=== PATIENT | male | born 1990 | race Caucasian/White ===

== ENCOUNTER 2017-10-07 19:27 | Emergency (ER) | payer OTHER ==
[~2017-10-07] VITALS: Ht 185.4 cm; Wt 199.0 kg
[~2017-10-07 19:27] MED LIST: ACET325 PO; ALBU90OI6 INH; AMOCLA875 PO; AMOX1XR PO; AMOX875 PO; ARIP10 PO; ATOM10 PO; AZIT250 PO; Ativan1 MG PO; Bactrim 400-801 EACH PO; CARI350 PO; CEPH500 PO; CLON1 PO; CYCL10 PO; FLUO10 PO; FLUO20 PO; FLUT.05NI; HALO5 PO; HYDACE5 PO; HYDACE5325 PO; IBUP800 PO; INVEGA; INVEGA SUSTENNA IM; LAMO25 PO; LEVSOD50 PO; LORA2 PO; META800 PO; MIRT30ST PO; MUPI2TC TOP; NEOPOLHCSU AS; OLAN10 PO; OXYB5 PO; OXYB5ER PO; Omeprazole20 M1 PO; PALI6TA PO; PROC5 PO; Percocet 5-3251 EACH PO; QUET100 PO; QUET25 PO; RISP3 PO; RXNEOPOLHC AS; SULTRIDS PO; Zyprexa10 MG PO; [UNRECOGNIZED DRUG - OTHER] PO
[2017-11-01] MEDS ORDERED: FLUO10 PO (15:18)
[2018-05-13] MEDS ORDERED: ARIP10 PO (21:30)
[2018-05-13] MEDS ORDERED: MONDOXYNE NL100 MG PO (21:54)
== END 2017-10-07 20:57 | disposition home or self-care (01) ==
LOC: ER 19:27
DX: S63.601A Unspecified sprain of right thumb, initial encounter (principal); F32.9 Major depressive disorder, single episode, unspecified; E03.9 Hypothyroidism, unspecified; F17.200 Nicotine dependence, unspecified, uncomplicated; Z91.02 Food additives allergy status; Z88.1 Allergy status to other antibiotic agents; Z88.8 Allergy status to other drugs, medicaments and biological substances; Z79.899 Other long term (current) drug therapy; W23.0XXA Caught, crushed, jammed, or pinched between moving objects, initial encounter; Y93.72 Activity, wrestling
CPT/HCPCS: 29125; 73140; 99283

== ENCOUNTER → 2018-01-05 | Outpatient (CLI) | payer OTHER | END | disposition home or self-care (01) | LOC: LAB EV 17:08 → LAB SHORT 17:08 | DX: J32.9 Chronic sinusitis, unspecified (principal) | CPT/HCPCS: 87070 ==

== ENCOUNTER → 2018-04-13 | Outpatient (CLI) | payer OTHER ==
[2018-04-13 14:28] LABS: Free Thyroxine 0.84 ng/dL (0.70-1.60); Thyroid Stimulating Hormone 2.545 uIU/mL (0.360-4.800)
== END | disposition home or self-care (01) ==
LOC: LAB SHORT 14:00 → LAB EV 14:00
PROVIDERS: General Practice
DX: J02.9 Acute pharyngitis, unspecified (principal); E03.9 Hypothyroidism, unspecified
CPT/HCPCS: 84439; 84443; 84481; 87070

== ENCOUNTER 2019-10-01 11:12 | Day surgery (SDC) | payer OTHER ==
[~2019-10-01] VITALS: Ht 185.4 cm; Wt 85.8 kg
[~2019-10-01 11:12] MED LIST changes: +MONDOXYNE NL100 MG PO; +OMEP20ER PO
[2019-10-01] MEDS ORDERED: Prozac40 MG PO (11:43)
--- NOTE | 2019-10-01 11:59 | NUR ---
Ambulatory in Day Surgery. History, Chart, Medications and Allergies reviewed before start of procedure. Slight exp wheeze/rhonchi. Reports rib fx, so unable to take dep breath/cough. Patient confirms NPO status and agrees with scheduled surgery. Pre-Op teaching done. Pt verbalizes understanding. Patient States Post-Procedure ride home has been arranged.
--- NOTE | 2019-10-01 16:25 | NUR ---
INTO STEP VIA DARREN. PT A&OX3. PT DENIES PAIN. LEFT ARME IN SLING. LEFT SHOULDER WITH AQUACEL DRESSING THAT IS C/D/I. PT STATES THAT LEFT ARM IS "NUMB."
--- NOTE | 2019-10-01 17:01 | NUR ---
Ambulatory in Day Surgery Dressing to procedure site clean, dry, intact with no visible drainage, swelling, erythema or bruising noted. Discharge instructions reviewed with patient. Patient verbalizes understanding. Copy given to patient to take home. Discharged via wheelchair to private car for ride home.
--- NOTE | 2019-10-02 08:34 | NUR ---
10/02/19 0834 Neida Herbert VERIFICATIONS: EDIT CHART.
== END 2019-10-01 17:00 | disposition home or self-care (01) ==
LOC: ORSCMMR 11:12
PROVIDERS: Orthopaedic Surgery
PROC: 0RSK04Z Reposition Left Shoulder Joint with Internal Fixation Device, Open Approach (ICD-10-PCS; principal; 2019-10-01 12:30)
DX: S42.252A Displaced fracture of greater tuberosity of left humerus, initial encounter for closed fracture (principal); E03.9 Hypothyroidism, unspecified; F17.210 Nicotine dependence, cigarettes, uncomplicated; Z79.899 Other long term (current) drug therapy
CPT/HCPCS: 87070; 87081; C1713; C1769; J1100; J2250; J2370; J2405; J2704; J2710; J3010; J7120

== ENCOUNTER → 2019-10-18 | Outpatient (CLI) | payer OTHER ==
[~2019-10-18] MED LIST changes: +Prozac40 MG PO
== END ==
LOC: LAB SHORT 13:35 → LAB EV 13:35
DX: K12.0 Recurrent oral aphthae (principal)
CPT/HCPCS: 87070; 87075; 87205

== ENCOUNTER 2020-12-15 16:19 | Emergency (ER) | payer OTHER ==
[~2020-12-15] VITALS: Ht 182.9 cm; Wt 83.9 kg
[~2020-12-15 16:19] MED LIST changes: +Norco 5-325 Ta1 EACH PO; +Veetids 500500 MG PO
[2020-12-15 20:36] LABS: BASOPHILS ABSOLUTE AUTO 0.02 K/mm3 (0.00-0.23); BASOPHILS PERCENT AUTO 0 % (0-2); EOSINOPHILS ABSOLUTE AUTO 0.05 K/mm3 (0.00-0.68); EOSINOPHILS PERCENT AUTO 1 % (0-6); Hematocrit 40.5 % (37.0-53.0); Hemoglobin 13.7 g/dL (13.5-17.5); IMMATURE GRAN ABSOLUTE AUTO 0.04 K/mm3 (0.00-0.10); IMMATURE GRAN PERCENT AUTO 0 % (0-1); LYMPHOCYTES ABSOLUTE AUTO 0.38 K/mm3 (0.84-5.20); LYMPHOCYTES PERCENT AUTO 4 % (21-46); MONOCYTES ABSOLUTE AUTO 0.43 K/mm3 (0.16-1.47); MONOCYTES PERCENT AUTO 4 % (4-13); Mean Corpuscular HGB 31.6 pg (26.0-34.0); Mean Corpuscular HGB Conc 33.8 g/dL (31.5-36.5); Mean Corpuscular Volume 93 fL (80-100); Mean Platelet Volume 10.6 fL (9.1-12.4); NEUTROPHILS ABSOLUTE AUTO 9.74 K/mm3 (1.96-9.15); NEUTROPHILS PERCENT AUTO 91 % (41-73); Platelet Count 127 K/mm3 (150-400); RDW Coefficient Variation 13.2 % (11.7-14.2); Red Blood Cell Count 4.34 M/mm3 (4.30-5.90); White Blood Cell Count 10.66 K/mm3 (4.00-11.30)
[2020-12-15 20:39] LABS: Troponin I <0.015 ng/mL (0.000-0.040)
[2020-12-15 20:52] LABS: Alanine Aminotransfer (ALT/SGP 21 U/L (12-78); Albumin, Blood 3.5 g/dL (3.4-5.0); Albumin/Globulin Ratio 1.1 (0.8-1.8); Alk Phos 64 U/L (50-136); Anion Gap 5 mmol/L (6-16); Aspartate Aminotrans (AST/SGOT 11 U/L (12-37); Bilirubin, Total 0.1 mg/dL (0.1-1.0); Blood Urea Nitrogen 10 mg/dL (8-24); Bun/Creatinine Ratio 9.6 (12.0-20.0); CO2, Blood 27 mmol/L (21-32); Calcium, Blood 8.5 mg/dL (8.5-10.1); Chloride, Blood 101 mmol/L (98-108); Creatinine, Blood 1.04 mg/dL (0.60-1.20); Globulin, Blood 3.3 g/dL (2.2-4.0); Glomerular Filtration Rate >60 (60-); Glucose, Blood 115 mg/dL (70-99); Potassium, Blood 3.9 mmol/L (3.5-5.5); Sodium, Blood 133 mmol/L (136-145); Total Protein, Blood 6.8 g/dL (6.4-8.2)
== END 2020-12-15 22:53 | disposition home or self-care (01) ==
LOC: ER 16:19
PROVIDERS: Emergency Medicine
DX: K08.89 Other specified disorders of teeth and supporting structures (principal); R50.9 Fever, unspecified; F17.200 Nicotine dependence, unspecified, uncomplicated; Z79.899 Other long term (current) drug therapy; Z91.041 Radiographic dye allergy status; Z88.1 Allergy status to other antibiotic agents; Z88.8 Allergy status to other drugs, medicaments and biological substances
CPT/HCPCS: 36415; 71046; 80053; 84484; 85025; 93005; 93010; 96374; 99282; 99284-25; J1885

== ENCOUNTER 2020-12-19 08:32 | Inpatient (IN) | payer OTHER ==
[~2020-12-19] VITALS: Ht 188 cm; Wt 88.7 kg
[2020-12-19 09:51] LABS: BASOPHILS ABSOLUTE AUTO 0.02 K/mm3 (0.00-0.23); BASOPHILS PERCENT AUTO 0 % (0-2); EOSINOPHILS ABSOLUTE AUTO 0.09 K/mm3 (0.00-0.68); EOSINOPHILS PERCENT AUTO 1 % (0-6); Hematocrit 41.3 % (37.0-53.0); Hemoglobin 13.8 g/dL (13.5-17.5); IMMATURE GRAN ABSOLUTE AUTO 0.03 K/mm3 (0.00-0.10); IMMATURE GRAN PERCENT AUTO 0 % (0-1); LYMPHOCYTES ABSOLUTE AUTO 2.08 K/mm3 (0.84-5.20); LYMPHOCYTES PERCENT AUTO 16 % (21-46); MONOCYTES ABSOLUTE AUTO 1.53 K/mm3 (0.16-1.47); MONOCYTES PERCENT AUTO 12 % (4-13); Mean Corpuscular HGB 31.1 pg (26.0-34.0); Mean Corpuscular HGB Conc 33.4 g/dL (31.5-36.5); Mean Corpuscular Volume 93 fL (80-100); Mean Platelet Volume 10.1 fL (9.1-12.4); NEUTROPHILS ABSOLUTE AUTO 9.16 K/mm3 (1.96-9.15); NEUTROPHILS PERCENT AUTO 71 % (41-73); Platelet Count 204 K/mm3 (150-400); RDW Coefficient Variation 13.2 % (11.7-14.2); RDW Standard Deviation 45.8 fL (35.1-46.3); Red Blood Cell Count 4.44 M/mm3 (4.30-5.90); White Blood Cell Count 12.91 K/mm3 (4.00-11.30)
[2020-12-19 10:10] LABS: Alanine Aminotransfer (ALT/SGP 37 U/L (12-78); Albumin, Blood 3.6 g/dL (3.4-5.0); Albumin/Globulin Ratio 0.9 (0.8-1.8); Alk Phos 91 U/L (50-136); Anion Gap 4 mmol/L (6-16); Aspartate Aminotrans (AST/SGOT 16 U/L (12-37); Bilirubin, Total 0.3 mg/dL (0.1-1.0); Blood Urea Nitrogen 7 mg/dL (8-24); Bun/Creatinine Ratio 7.4 (12.0-20.0); CO2, Blood 30 mmol/L (21-32); Chloride, Blood 99 mmol/L (98-108); Creatinine, Blood 0.94 mg/dL (0.60-1.20); Globulin, Blood 4.1 g/dL (2.2-4.0); Glomerular Filtration Rate >60 (60-); Glucose, Blood 96 mg/dL (70-99); Potassium, Blood 4.6 mmol/L (3.5-5.5); Sodium, Blood 133 mmol/L (136-145); Total Protein, Blood 7.7 g/dL (6.4-8.2)
[2020-12-19] MEDS ORDERED: CLON.2 PO (19:31)
[2020-12-19] MEDS ORDERED: AMLO5 PO (19:31)
[2020-12-19] MEDS ORDERED: LEVSOD25 PO (19:31)
[2020-12-19] MEDS ORDERED: INVEGA SUS234 MG/1.1 IM (19:32)
[2020-12-19 20:49] LABS: U Amphetamine Screen Not Detected; U Barbituate Screen Not Detected; U Benzodiazapine Screen Not Detected; U Buprenorphine Screen Not Detected; U Cannabinoids Screen DETECTED; U Cocaine Screen Not Detected; U Methadone Screen Not Detected; U Methamphetamine Screen Not Detected; U Opiates Screen DETECTED; U Oxycodone Screen Not Detected; U Phencyclidine Screen Not Detected; U Propoxyphene Screen Not Detected
[2020-12-20 04:25] LABS: BASOPHILS ABSOLUTE AUTO 0.03 K/mm3 (0.00-0.23); BASOPHILS PERCENT AUTO 0 % (0-2); EOSINOPHILS ABSOLUTE AUTO 0.09 K/mm3 (0.00-0.68); EOSINOPHILS PERCENT AUTO 1 % (0-6); Hemoglobin 13.3 g/dL (13.5-17.5); IMMATURE GRAN ABSOLUTE AUTO 0.05 K/mm3 (0.00-0.10); IMMATURE GRAN PERCENT AUTO 0 % (0-1); LYMPHOCYTES ABSOLUTE AUTO 2.53 K/mm3 (0.84-5.20); LYMPHOCYTES PERCENT AUTO 19 % (21-46); MONOCYTES ABSOLUTE AUTO 1.95 K/mm3 (0.16-1.47); MONOCYTES PERCENT AUTO 14 % (4-13); Mean Corpuscular HGB 31.4 pg (26.0-34.0); Mean Corpuscular HGB Conc 34.1 g/dL (31.5-36.5); Mean Corpuscular Volume 92 fL (80-100); Mean Platelet Volume 9.6 fL (9.1-12.4); NEUTROPHILS ABSOLUTE AUTO 9.03 K/mm3 (1.96-9.15); NEUTROPHILS PERCENT AUTO 66 % (41-73); Platelet Count 216 K/mm3 (150-400); RDW Coefficient Variation 13.2 % (11.7-14.2); Red Blood Cell Count 4.24 M/mm3 (4.30-5.90); White Blood Cell Count 13.68 K/mm3 (4.00-11.30)
--- NOTE | 2020-12-20 04:43 | NUR ---
SHIFT SUMMARY PT HAS BEEN A/O X4, IND IN ROOM. MOTHER AT BEDSIDE OVERNIGHT TO HELP WITH PT ANXIETY. REDNESS AND SWELLING TO L JAW/FACE. PAIN MANAGED WITH 1MG IV DILAUDED ABOUT Q2HRS. PT TOLERATING PO INTAKE AND VOIDING. NO ACUTE CHANGES OVERNIGHT. PT RESTING AT THIS TIME, CALL LIGHT IN REACH.
[2020-12-20 05:04] LABS: Alanine Aminotransfer (ALT/SGP 26 U/L (12-78); Albumin/Globulin Ratio 0.8 (0.8-1.8); Alk Phos 81 U/L (50-136); Anion Gap 3 mmol/L (6-16); Aspartate Aminotrans (AST/SGOT 7 U/L (12-37); Bilirubin, Total 0.4 mg/dL (0.1-1.0); Blood Urea Nitrogen 7 mg/dL (8-24); Bun/Creatinine Ratio 7.7 (12.0-20.0); CO2, Blood 31 mmol/L (21-32); Calcium, Blood 9.1 mg/dL (8.5-10.1); Chloride, Blood 99 mmol/L (98-108); Creatinine, Blood 0.91 mg/dL (0.60-1.20); Globulin, Blood 3.8 g/dL (2.2-4.0); Glomerular Filtration Rate >60 (60-); Glucose, Blood 115 mg/dL (70-99); Sodium, Blood 133 mmol/L (136-145); Total Protein, Blood 6.8 g/dL (6.4-8.2)
[2020-12-20 11:57] LABS: Vancomycin, Trough 13.7 ug/mL (5.0-10.0)
--- NOTE | 2020-12-20 14:54 | NUR ---
AMBULATING DOWN THE MC, REPORTS PAIN IS DOWN TO 4/10 FROM 9/10 AFTER 2 NORCO GIVEN, CONT. TO MONITOR FOR ANY CHANGES.
--- NOTE | 2020-12-20 17:01 | NUR ---
PT REQUESTING MORE PAIN MEDS ABOUT 3 HOURS AFTER NORCO TAKEN, DR. WOMACK NOTIFIED, TRAMADOL ORDERED AND GIVEN TO PT, CONT. ICE PACK AND HEATING PAD OFFERED AND HAS USED BOTH ALTERNATIVELY.
--- NOTE | 2020-12-20 17:30 | NUR ---
SUMMARY CONT. TO C/O PAIN ON L JAW AREA, STATES THE SWELLING IS "THE SAME" PT STARTED ON NORCO TODAY WITH INADEQUATE PAIN RELIEF, TRAMADOL ADDED Q4HRS PRN BY DR. WOMACK, ICE PACK AND HEATING PAD APPLIED TO JAW AREA ALTERNATELY, CONT. TO HAVE DECREASED APPETITE, PT ONLY DRINKING ENSURE, STATES HIS MOM IS BRINGING HIM SOME FOOD, NO OTHER CHANGES THIS SHIFT.
--- NOTE | 2020-12-20 18:22 | NUR ---
PT C/O 05/08 PAIN, STATES THE TRAMADOL WASN'T WORKING, DR. HOWE NOTIFIED, NEW ORDER FOR DILAUDID GIVEN, NORCO CHANGED TO Q4HRS.
--- NOTE | 2020-12-21 04:14 | NUR ---
PT HAS PAINFUL FACIAL AND JAW SWELLING. HAD HEAT PLACED TO JAW BUT REMOVED. PT REFUSES COLD PACK, STS IT DOES NOT WORK. PT HAS BEEN MEDICATED FOR PAIN TWICE AND APPEARED TO SLEEP SOUNDLY AFTER BEING MEDICATED. NO SIGNIFICANT CHANGES TO PT STATUS OVERNIGHT.
[2020-12-21 04:36] LABS: BASOPHILS ABSOLUTE AUTO 0.03 K/mm3 (0.00-0.23); BASOPHILS PERCENT AUTO 0 % (0-2); EOSINOPHILS ABSOLUTE AUTO 0.19 K/mm3 (0.00-0.68); EOSINOPHILS PERCENT AUTO 2 % (0-6); Hematocrit 37.4 % (37.0-53.0); Hemoglobin 12.9 g/dL (13.5-17.5); IMMATURE GRAN ABSOLUTE AUTO 0.04 K/mm3 (0.00-0.10); IMMATURE GRAN PERCENT AUTO 0 % (0-1); LYMPHOCYTES ABSOLUTE AUTO 2.18 K/mm3 (0.84-5.20); LYMPHOCYTES PERCENT AUTO 21 % (21-46); MONOCYTES ABSOLUTE AUTO 1.05 K/mm3 (0.16-1.47); MONOCYTES PERCENT AUTO 10 % (4-13); Mean Corpuscular HGB 31.4 pg (26.0-34.0); Mean Corpuscular HGB Conc 34.5 g/dL (31.5-36.5); Mean Corpuscular Volume 91 fL (80-100); Mean Platelet Volume 9.4 fL (9.1-12.4); NEUTROPHILS ABSOLUTE AUTO 6.79 K/mm3 (1.96-9.15); NEUTROPHILS PERCENT AUTO 66 % (41-73); Platelet Count 219 K/mm3 (150-400); RDW Coefficient Variation 13.2 % (11.7-14.2); RDW Standard Deviation 45.1 fL (35.1-46.3); Red Blood Cell Count 4.11 M/mm3 (4.30-5.90); White Blood Cell Count 10.28 K/mm3 (4.00-11.30)
--- NOTE | 2020-12-21 04:52 | NUR ---
PT VSS T/O NIGHT. SWELLING TO LEFT SIDE OF FACE APPEARS TO BE IMPROVING. PT REP IT FEELS LESS SWOLLEN AND TIGHT. PT REMAINS PAINFUL BUT DOES REP PAIN "A LITTLE BETTER"; PAIN MGD W/NORCO AND IV DILAUDID. PT HAD NO C/O N/V, IS VOIDING URINE W/O DIFFICULTY. PT MORE PLEASANT AND INTERACTIVE THIS AM, IS INDEP IN ROOM, MOM IN ROOM DURING NIGHT. IV ABX CONT PER ORDERS.
[2020-12-21 04:57] LABS: Anion Gap 2 mmol/L (6-16); Blood Urea Nitrogen 8 mg/dL (8-24); Bun/Creatinine Ratio 9.9 (12.0-20.0); CO2, Blood 29 mmol/L (21-32); Calcium, Blood 8.9 mg/dL (8.5-10.1); Chloride, Blood 104 mmol/L (98-108); Creatinine, Blood 0.81 mg/dL (0.60-1.20); Glomerular Filtration Rate >60 (60-); Glucose, Blood 98 mg/dL (70-99); Potassium, Blood 4.5 mmol/L (3.5-5.5); Sodium, Blood 135 mmol/L (136-145)
--- NOTE | 2020-12-21 08:44 | NUR ---
REPORTS FEELING "BETTER" TODAY, L JAW SWELLING APPEARS IMPROVED, PT STATES IT FEELS LIKE THE SWELLING HAS GONE DOWN, REPORTS PAIN IS TOLERABLE FOR NOW.
[2020-12-21 13:00] LABS: Vancomycin, Trough 17.8 ug/mL (5.0-10.0)
[2020-12-21] MEDS ORDERED: ACET325 PO (13:01)
[2020-12-21] MEDS ORDERED: TRAM50 PO (13:01)
[2020-12-21] MEDS ORDERED: AMOCLA500 PO (13:02)
[2020-12-21] MEDS ORDERED: DOXY100 PO (13:02)
--- NOTE | 2020-12-21 14:06 | NUR ---
DC'D HOME, DC INSTRUCTIONS GIVEN TO MOM AND PT, VERBALIZED UNDERSTANDING, IV DC'D CATH INTACT, RX SENT TO [facility] PER PT REQUEST, PHARMACY CONTACTED REGARDING CHANGE IN DOXYCYCLINE RX.
== END 2020-12-21 13:39 | disposition home or self-care (01) | DRG 603 ==
LOC: ER 08:32 → MEDS 12:32 → SURS 13:37
PROVIDERS: Pharmacist; Physician Assistant; Student in an Organized Health Care Education/Training Program; ADMIT Internal Medicine
DX: L03.211 Cellulitis of face (principal); F17.210 Nicotine dependence, cigarettes, uncomplicated; F32.9 Major depressive disorder, single episode, unspecified; I10 Essential (primary) hypertension; F90.9 Attention-deficit hyperactivity disorder, unspecified type; Z98.890 Other specified postprocedural states; Z88.1 Allergy status to other antibiotic agents; Z88.8 Allergy status to other drugs, medicaments and biological substances; Z91.040 Latex allergy status; E03.9 Hypothyroidism, unspecified; F15.10 Other stimulant abuse, uncomplicated; K04.7 Periapical abscess without sinus; F43.10 Post-traumatic stress disorder, unspecified; Z79.899 Other long term (current) drug therapy
CPT/HCPCS: 36415; 70487; 80048; 80053; 80202; 83605; 83690; 84145; 85025; 85651; 86140; 87040; 96365-59; 96366; 96367; 96375-59; 96376-59; 99285-25; A9270; J0295; J1170; J1650; J2405; J3010; J3370; J7030; J7050; Q9967

== ENCOUNTER 2020-12-26 20:18 | Emergency (ER) | payer OTHER ==
[~2020-12-26] VITALS: Ht 188 cm; Wt 88.0 kg
[~2020-12-26 20:18] MED LIST changes: +AMLO5 PO; +AMOCLA500 PO; +CLON.2 PO; +DOXY100 PO; +INVEGA SUS234 MG/1.1 IM; +LEVSOD25 PO; +TRAM50 PO
[2020-12-26 20:51] LABS: BASOPHILS ABSOLUTE AUTO 0.02 K/mm3 (0.00-0.23); BASOPHILS PERCENT AUTO 0 % (0-2); EOSINOPHILS ABSOLUTE AUTO 0.12 K/mm3 (0.00-0.68); EOSINOPHILS PERCENT AUTO 1 % (0-6); Hemoglobin 13.7 g/dL (13.5-17.5); IMMATURE GRAN ABSOLUTE AUTO 0.03 K/mm3 (0.00-0.10); IMMATURE GRAN PERCENT AUTO 0 % (0-1); LYMPHOCYTES ABSOLUTE AUTO 2.88 K/mm3 (0.84-5.20); LYMPHOCYTES PERCENT AUTO 26 % (21-46); MONOCYTES ABSOLUTE AUTO 0.92 K/mm3 (0.16-1.47); MONOCYTES PERCENT AUTO 8 % (4-13); Mean Corpuscular HGB 31.4 pg (26.0-34.0); Mean Corpuscular HGB Conc 34.3 g/dL (31.5-36.5); Mean Corpuscular Volume 92 fL (80-100); Mean Platelet Volume 9.5 fL (9.1-12.4); NEUTROPHILS ABSOLUTE AUTO 7.19 K/mm3 (1.96-9.15); NEUTROPHILS PERCENT AUTO 64 % (41-73); Platelet Count 301 K/mm3 (150-400); RDW Coefficient Variation 13.1 % (11.7-14.2); RDW Standard Deviation 44.3 fL (35.1-46.3); Red Blood Cell Count 4.37 M/mm3 (4.30-5.90); White Blood Cell Count 11.16 K/mm3 (4.00-11.30)
[2020-12-26 21:09] LABS: Alanine Aminotransfer (ALT/SGP 24 U/L (12-78); Albumin, Blood 3.8 g/dL (3.4-5.0); Albumin/Globulin Ratio 0.9 (0.8-1.8); Alk Phos 80 U/L (50-136); Anion Gap 5 mmol/L (6-16); Aspartate Aminotrans (AST/SGOT 16 U/L (12-37); Bilirubin, Total 0.2 mg/dL (0.1-1.0); Blood Urea Nitrogen 8 mg/dL (8-24); Bun/Creatinine Ratio 8.7 (12.0-20.0); CO2, Blood 31 mmol/L (21-32); Calcium, Blood 9.5 mg/dL (8.5-10.1); Chloride, Blood 100 mmol/L (98-108); Creatinine, Blood 0.92 mg/dL (0.60-1.20); Globulin, Blood 4.1 g/dL (2.2-4.0); Glomerular Filtration Rate >60 (60-); Glucose, Blood 95 mg/dL (70-99); Potassium, Blood 3.9 mmol/L (3.5-5.5); Sodium, Blood 136 mmol/L (136-145); Total Protein, Blood 7.9 g/dL (6.4-8.2)
== END 2020-12-26 21:30 | disposition home or self-care (01) ==
LOC: ER 20:18
PROVIDERS: Physician Assistant
DX: L08.9 Local infection of the skin and subcutaneous tissue, unspecified (principal); Z79.899 Other long term (current) drug therapy
CPT/HCPCS: 36415; 80053; 85025; 99283

== ENCOUNTER → 2021-02-01 | Outpatient (CLI) | payer OTHER | END | disposition home or self-care (01) | LOC: LAB 15:04 → LAB SHORT 15:04 | DX: N48.22 Cellulitis of corpus cavernosum and penis (principal) | CPT/HCPCS: 87070; 87205 ==

== ENCOUNTER → 2021-07-10 | Outpatient (CLI) | payer OTHER ==
[2021-07-18 21:06] LABS: HSV-1 DNA Negative (Negative); HSV-2 DNA Negative (Negative)
== END ==
LOC: LAB 12:25 → LAB SHORT 12:25
PROVIDERS: Physician Assistant Surgical
DX: S01.501A Unspecified open wound of lip, initial encounter (principal)
CPT/HCPCS: 87529

== ENCOUNTER → 2021-08-01 | Outpatient (CLI) | payer OTHER ==
[2021-08-01 11:54] LABS: BASOPHILS ABSOLUTE AUTO 0.01 K/mm3 (0.00-0.23); BASOPHILS PERCENT AUTO 0 % (0-2); EOSINOPHILS ABSOLUTE AUTO 0.12 K/mm3 (0.00-0.68); EOSINOPHILS PERCENT AUTO 1 % (0-6); Hematocrit 41.3 % (37.0-53.0); IMMATURE GRAN ABSOLUTE AUTO 0.01 K/mm3 (0.00-0.10); IMMATURE GRAN PERCENT AUTO 0 % (0-1); LYMPHOCYTES ABSOLUTE AUTO 0.47 K/mm3 (0.84-5.20); LYMPHOCYTES PERCENT AUTO 6 % (21-46); MONOCYTES ABSOLUTE AUTO 0.79 K/mm3 (0.16-1.47); MONOCYTES PERCENT AUTO 9 % (4-13); Mean Corpuscular HGB Conc 33.9 g/dL (31.5-36.5); Mean Corpuscular Volume 94 fL (80-100); NEUTROPHILS ABSOLUTE AUTO 7.05 K/mm3 (1.96-9.15); NEUTROPHILS PERCENT AUTO 84 % (41-73); Platelet Count 212 K/mm3 (150-400); RDW Coefficient Variation 13.2 % (11.7-14.2); RDW Standard Deviation 45.8 fL (35.1-46.3); Red Blood Cell Count 4.38 M/mm3 (4.30-5.90); White Blood Cell Count 8.45 K/mm3 (4.00-11.30)
[2021-08-01 12:19] LABS: Alanine Aminotransfer (ALT/SGP 33 U/L (12-78); Albumin, Blood 4.4 g/dL (3.4-5.0); Albumin/Globulin Ratio 1.5 (0.8-1.8); Alk Phos 74 U/L (40-126); Anion Gap 9 mmol/L (6-16); Aspartate Aminotrans (AST/SGOT 24 U/L (12-37); Bilirubin, Total 0.5 mg/dL (0.1-1.0); Blood Urea Nitrogen 8 mg/dL (8-24); Bun/Creatinine Ratio 8.8 (12.0-20.0); CO2, Blood 31 mmol/L (21-32); Calcium, Blood 9.3 mg/dL (8.5-10.1); Chloride, Blood 102 mmol/L (98-108); Creatinine, Blood 0.91 mg/dL (0.60-1.20); Globulin, Blood 2.9 g/dL (2.2-4.0); Glomerular Filtration Rate >60 (60-); Glucose, Blood 82 mg/dL (70-99); Potassium, Blood 3.8 mmol/L (3.5-5.5); Sodium, Blood 142 mmol/L (136-145); Thyroid Stimulating Hormone 1.644 uIU/mL (0.360-4.800); Total Protein, Blood 7.3 g/dL (6.4-8.2); Troponin I <0.017 ng/mL (0.000-0.040)
== END | disposition home or self-care (01) ==
LOC: LAB SHORT 11:51
PROVIDERS: Family Medicine
DX: E03.9 Hypothyroidism, unspecified (principal); R07.89 Other chest pain
CPT/HCPCS: 80053; 84443; 84484; 85025

== ENCOUNTER 2022-04-02 00:07 | Emergency (ER) | payer OTHER ==
[~2022-04-02] VITALS: Ht 185.4 cm; Wt 95.2 kg
[2022-04-02] MEDS ORDERED: AMOCLA875 PO (00:49)
== END 2022-04-02 00:56 | disposition home or self-care (01) ==
LOC: ER 00:07
DX: H66.91 Otitis media, unspecified, right ear (principal); J32.9 Chronic sinusitis, unspecified; L53.8 Other specified erythematous conditions; F17.200 Nicotine dependence, unspecified, uncomplicated; Z88.1 Allergy status to other antibiotic agents; Z88.8 Allergy status to other drugs, medicaments and biological substances; Z91.048 Other nonmedicinal substance allergy status; Z79.899 Other long term (current) drug therapy
CPT/HCPCS: A9270

== ENCOUNTER 2022-04-04 22:25 | Emergency (ER) | payer OTHER ==
[~2022-04-04] VITALS: Ht 188 cm; Wt 94.3 kg
[2022-04-05 00:18] LABS: Source, Urine Clean Catch
[2022-04-05 00:33] LABS: Appearance, Urine Clear (Clear); Bilirubin, Urine Neg (Neg); Blood, Urine Neg (Neg); Color, Urine Yellow (P-Yellow); Glucose Qualitative, Urine Neg (Neg); Ketones, Urine Neg (Neg); Leukocyte Esterase, Urine Neg (Neg); Nitrite, Urine Neg (Neg); Protein, Urine Neg (Neg); Specific Gravity, Urine 1.015 (1.003-1.022); Urobilinogen, Urine NORM (Normal)
== END 2022-04-05 03:19 | disposition home or self-care (01) ==
LOC: ER 22:25
PROVIDERS: Student in an Organized Health Care Education/Training Program
DX: K59.00 Constipation, unspecified (principal); R39.198 Other difficulties with micturition; M54.9 Dorsalgia, unspecified
CPT/HCPCS: 51798; 81003; 99283

== ENCOUNTER 2023-04-17 22:08 | Emergency (ER) | payer OTHER ==
[~2023-04-17] VITALS: Ht 188 cm; Wt 89.1 kg
[~2023-04-17 22:08] MED LIST changes: +ONDA4ODT MM
[2023-04-17 22:38] VITALS: BP 171/80
== END 2023-04-17 23:35 | disposition home or self-care (01) ==
LOC: ER 22:08
DX: F15.10 Other stimulant abuse, uncomplicated (principal); F17.200 Nicotine dependence, unspecified, uncomplicated; Z88.1 Allergy status to other antibiotic agents; Z88.8 Allergy status to other drugs, medicaments and biological substances; Z91.09 Other allergy status, other than to drugs and biological substances
CPT/HCPCS: 99284

== ENCOUNTER 2023-04-21 14:36 | Emergency (ER) | payer OTHER ==
[~2023-04-21] VITALS: Ht 185.4 cm; Wt 79.4 kg
[2023-04-21 15:04] VITALS: BP 170/107
[2023-04-21] MEDS ORDERED: ESCI10 PO (15:21)
== END 2023-04-21 15:57 | disposition home or self-care (01) ==
LOC: ER 14:36
DX: M79.641 Pain in right hand (principal); Z88.1 Allergy status to other antibiotic agents; Z88.8 Allergy status to other drugs, medicaments and biological substances; Z91.041 Radiographic dye allergy status
CPT/HCPCS: 73130; 99283-25

== ENCOUNTER 2023-05-07 18:19 | Emergency (ER) | payer OTHER ==
[~2023-05-07] VITALS: Ht 188 cm; Wt 93.0 kg
[~2023-05-07 18:19] MED LIST changes: +ESCI10 PO
[2023-05-07 19:44] LABS: BASOPHILS ABSOLUTE AUTO 0.01 K/mm3 (0.00-0.23); BASOPHILS PERCENT AUTO 0 % (0-2); EOSINOPHILS ABSOLUTE AUTO 0.27 K/mm3 (0.00-0.68); EOSINOPHILS PERCENT AUTO 3 % (0-6); Hematocrit 37.5 % (37.0-53.0); Hemoglobin 12.7 g/dL (13.5-17.5); IMMATURE GRAN ABSOLUTE AUTO 0.02 K/mm3 (0.00-0.10); IMMATURE GRAN PERCENT AUTO 0 % (0-1); LYMPHOCYTES ABSOLUTE AUTO 2.85 K/mm3 (0.84-5.20); LYMPHOCYTES PERCENT AUTO 32 % (21-46); MONOCYTES ABSOLUTE AUTO 1.07 K/mm3 (0.16-1.47); MONOCYTES PERCENT AUTO 12 % (4-13); Mean Corpuscular HGB 30.8 pg (26.0-34.0); Mean Corpuscular HGB Conc 33.9 g/dL (31.5-36.5); Mean Corpuscular Volume 91 fL (80-100); Mean Platelet Volume 9.5 fL (9.1-12.4); NEUTROPHILS ABSOLUTE AUTO 4.73 K/mm3 (1.96-9.15); NEUTROPHILS PERCENT AUTO 53 % (41-73); Platelet Count 226 K/mm3 (150-400); RDW Coefficient Variation 13.2 % (11.7-14.2); RDW Standard Deviation 44.2 fL (35.1-46.3); Red Blood Cell Count 4.12 M/mm3 (4.30-5.90); White Blood Cell Count 8.95 K/mm3 (4.00-11.30)
[2023-05-07 20:05] LABS: Alanine Aminotransfer (ALT/SGP 34 U/L (12-78); Albumin, Blood 3.7 g/dL (3.4-5.0); Alk Phos 75 U/L (50-136); Anion Gap 3 mmol/L (6-16); Aspartate Aminotrans (AST/SGOT 28 U/L (12-37); Bilirubin, Total <0.1 mg/dL (0.1-1.0); Blood Urea Nitrogen 18 mg/dL (8-24); Bun/Creatinine Ratio 22.5 (12.0-20.0); CO2, Blood 29 mmol/L (21-32); Calcium, Blood 9.3 mg/dL (8.5-10.1); Chloride, Blood 105 mmol/L (98-108); Globulin, Blood 3.8 g/dL (2.2-4.0); Glomerular Filtration Rate 121 (60-); Glucose, Blood 131 mg/dL (70-99); Potassium, Blood 4.1 mmol/L (3.5-5.5); Sodium, Blood 137 mmol/L (136-145); Total Protein, Blood 7.5 g/dL (6.4-8.2)
[2023-05-07 20:29] VITALS: BP 139/74
[2023-05-07] MEDS ORDERED: METPRE4DP PO (23:19)
== END 2023-05-07 23:31 | disposition home or self-care (01) ==
LOC: ER 18:19
PROVIDERS: Emergency Medicine
DX: J40 Bronchitis, not specified as acute or chronic (principal); F17.200 Nicotine dependence, unspecified, uncomplicated; Z79.899 Other long term (current) drug therapy
CPT/HCPCS: 71046; 80053; 85025; 93005; 93010; 99284-25; A9270; J7512

== ENCOUNTER 2023-06-22 07:05 | Emergency (ER) | payer OTHER ==
[~2023-06-22] VITALS: Ht 185.4 cm; Wt 90.7 kg
[~2023-06-22 07:05] MED LIST changes: +METPRE4DP PO
[2023-06-22 07:16] VITALS: BP 168/95
== END 2023-06-22 08:27 | disposition home or self-care (01) ==
LOC: ER 07:05
DX: F22 Delusional disorders (principal); F15.10 Other stimulant abuse, uncomplicated; G47.00 Insomnia, unspecified; F17.210 Nicotine dependence, cigarettes, uncomplicated; Z79.899 Other long term (current) drug therapy; Z88.8 Allergy status to other drugs, medicaments and biological substances; Z88.1 Allergy status to other antibiotic agents; Z91.02 Food additives allergy status
CPT/HCPCS: 99283; A9270

== ENCOUNTER 2023-07-12 10:34 | Emergency (ER) | payer OTHER ==
[~2023-07-12] VITALS: Ht 188 cm; Wt 88.5 kg
[2023-07-12 10:40] VITALS: BP 148/87
== END 2023-07-12 13:01 | disposition home or self-care (01) ==
LOC: ER 10:34
DX: Z00.00 Encounter for general adult medical examination without abnormal findings (principal); F90.9 Attention-deficit hyperactivity disorder, unspecified type; F32.A Depression, unspecified; F17.200 Nicotine dependence, unspecified, uncomplicated; Z79.899 Other long term (current) drug therapy; Z88.1 Allergy status to other antibiotic agents; Z88.8 Allergy status to other drugs, medicaments and biological substances; Z91.041 Radiographic dye allergy status
CPT/HCPCS: 99283

== ENCOUNTER 2023-08-02 17:14 | Emergency (ER) | payer OTHER ==
[~2023-08-02] VITALS: Ht 185.4 cm; Wt 88.9 kg
[2023-08-02 17:28] VITALS: BP 150/104
== END 2023-08-02 19:00 | disposition left against medical advice (07) ==
LOC: ER 17:14
DX: R07.9 Chest pain, unspecified (principal); Z53.29 Procedure and treatment not carried out because of patient's decision for other reasons
CPT/HCPCS: 99281

== ENCOUNTER → 2024-08-28 | Outpatient (CLI) | payer OTHER ==
[2024-08-28 19:02] LABS: BASOPHILS ABSOLUTE AUTO 0.02 K/mm3 (0.00-0.23); BASOPHILS PERCENT AUTO 0 % (0-2); EOSINOPHILS PERCENT AUTO 3 % (0-6); Hematocrit 37.7 % (37.0-53.0); Hemoglobin 12.8 g/dL (13.5-17.5); IMMATURE GRAN ABSOLUTE AUTO 0.02 K/mm3 (0.00-0.10); IMMATURE GRAN PERCENT AUTO 0 % (0-1); LYMPHOCYTES ABSOLUTE AUTO 2.58 K/mm3 (0.84-5.20); LYMPHOCYTES PERCENT AUTO 29 % (21-46); MONOCYTES ABSOLUTE AUTO 0.81 K/mm3 (0.16-1.47); MONOCYTES PERCENT AUTO 9 % (4-13); Mean Corpuscular HGB 30.8 pg (26.0-34.0); Mean Corpuscular Volume 91 fL (80-100); Mean Platelet Volume 10.3 fL (9.1-12.4); NEUTROPHILS ABSOLUTE AUTO 5.21 K/mm3 (1.96-9.15); NEUTROPHILS PERCENT AUTO 58 % (41-73); Platelet Count 200 K/mm3 (150-400); RDW Coefficient Variation 12.8 % (11.7-14.2); RDW Standard Deviation 41.9 fL (35.1-46.3); Red Blood Cell Count 4.16 M/mm3 (4.30-5.90); White Blood Cell Count 8.94 K/mm3 (4.00-11.30)
[2024-08-28 19:12] LABS: Albumin, Blood 3.6 g/dL (3.4-5.0); Albumin/Globulin Ratio 1.3 (0.8-1.8); Bilirubin, Total 0.1 mg/dL (0.1-1.0); Bun/Creatinine Ratio 10.5 (12.0-20.0); Calcium, Blood 8.9 mg/dL (8.5-10.1); Creatinine, Blood 0.95 mg/dL (0.60-1.20); Globulin, Blood 2.8 g/dL (2.2-4.0); Total Protein, Blood 6.4 g/dL (6.4-8.2)
[2024-08-28 20:03] LABS: Lithium 0.64 mmol/L (0.60-1.20)
== END | disposition home or self-care (01) ==
LOC: LAB 18:57 → LAB SHORT 18:57
DX: R53.1 Weakness (principal)
CPT/HCPCS: 80053; 80178; 85025

== ENCOUNTER 2025-01-04 01:10 | Emergency (ER) | payer OTHER ==
[~2025-01-04] VITALS: Ht 198.1 cm; Wt 98.0 kg
[~2025-01-04 01:10] MED LIST changes: +DOCUSATE SODIU250 MG PO; +ERGO400 PO; +ERZOFRI156 MG/1 M IM; +ESCI20 PO; +EUTHYROX88 MCG PO; +FERSU300 PO; +LITH300C PO; +LITH300ER PO; +MAGNESIUM OXID400 M3 PO; +NEURONTIN300 MG PO; +OLANZAPINE1024 PO; +OMEPRAZOLE MAGN20 M1 PO
[2025-01-04] MEDS ORDERED: NEURONTIN300 MG PO (02:48)
[2025-01-04 05:17] VITALS: BP 156/99
== END 2025-01-04 05:18 | disposition home or self-care (01) ==
LOC: ER 01:10
DX: F15.959 Other stimulant use, unspecified with stimulant-induced psychotic disorder, unspecified (principal); Z88.1 Allergy status to other antibiotic agents; Z88.8 Allergy status to other drugs, medicaments and biological substances; Z91.048 Other nonmedicinal substance allergy status; Z79.2 Long term (current) use of antibiotics; Z79.890 Hormone replacement therapy; F17.200 Nicotine dependence, unspecified, uncomplicated
CPT/HCPCS: 99284

== ENCOUNTER 2025-01-30 04:35 | Inpatient (IN) | payer OTHER ==
[~2025-01-30] VITALS: Ht 182.9 cm; Wt 88.0 kg
[2025-01-30] VITALS (37 sets, daily range): BP systolic 118–168; BP diastolic 75–143
[~2025-01-30 04:35] MED LIST changes: +MUPIROCIN1 G1 TOP
[2025-01-30] MEDS ORDERED: Naloxone HCl 1MG / ML 2ML SYR IV ONE (04:45)
[2025-01-30 04:53] LABS: BASOPHILS ABSOLUTE AUTO 0.03 K/mm3 (0.00-0.23); BASOPHILS PERCENT AUTO 0 % (0-2); EOSINOPHILS ABSOLUTE AUTO 0.08 K/mm3 (0.00-0.68); EOSINOPHILS PERCENT AUTO 1 % (0-6); Hematocrit 41.8 % (37.0-53.0); Hemoglobin 13.3 g/dL (13.5-17.5); IMMATURE GRAN ABSOLUTE AUTO 0.16 K/mm3 (0.00-0.10); IMMATURE GRAN PERCENT AUTO 1 % (0-1); LYMPHOCYTES ABSOLUTE AUTO 3.13 K/mm3 (0.84-5.20); LYMPHOCYTES PERCENT AUTO 23 % (21-46); MONOCYTES ABSOLUTE AUTO 1.29 K/mm3 (0.16-1.47); MONOCYTES PERCENT AUTO 10 % (4-13); Mean Corpuscular HGB Conc 31.8 g/dL (31.5-36.5); Mean Corpuscular Volume 97 fL (80-100); NEUTROPHILS ABSOLUTE AUTO 8.71 K/mm3 (1.96-9.15); NEUTROPHILS PERCENT AUTO 65 % (41-73); NRBC ABSOLUTE 0.00 K/mm3 (0.00-0.02); NRBC Auto 0.0 /100 WBC (0.0-0.2); Platelet Count 237 K/mm3 (150-400); RDW Coefficient Variation 12.8 % (11.7-14.2); RDW Standard Deviation 45.9 fL (35.1-46.3)
[2025-01-30 05:07] LABS: Source, Urine Clean Catch
[2025-01-30 05:20] LABS: Bilirubin, Urine Neg (Neg); Color, Urine Yellow (P-Yellow); Glucose Qualitative, Urine 4+ (Neg); Ketones, Urine Neg (Neg); Leukocyte Esterase, Urine Neg (Neg); Protein, Urine 3+ (Neg); Specific Gravity, Urine 1.015 (1.003-1.022); Urobilinogen, Urine NORM (Normal)
[2025-01-30 05:42] LABS: U Amphetamine Screen DETECTED; U Barbituate Screen Not Detected; U Benzodiazapine Screen Not Detected; U Buprenorphine Screen Not Detected; U Cannabinoids Screen DETECTED; U Cocaine Screen Not Detected; U Methadone Screen Not Detected; U Methamphetamine Screen DETECTED; U Opiates Screen Not Detected; U Oxycodone Screen Not Detected; U Phencyclidine Screen Not Detected
[2025-01-30 05:43] LABS: Red Blood Cells, Urine 0-2 /hpf (0-2); White Blood Cells, Urine 0-2 /hpf (0-5)
[2025-01-30 06:13] LABS: Acetaminophen, Random <2.0 ug/mL (10.0-30.0); Alanine Aminotransfer (ALT/SGP 163 U/L (12-78); Albumin, Blood 3.7 g/dL (3.4-5.0); Albumin/Globulin Ratio 1.3 (0.8-1.8); Anion Gap 16 mmol/L (3-11); Aspartate Aminotrans (AST/SGOT 144 U/L (12-37); Bilirubin, Total 0.3 mg/dL (0.1-1.0); Blood Urea Nitrogen 17 mg/dL (8-24); CO2, Blood 19 mmol/L (21-32); Calcium, Blood 8.6 mg/dL (8.5-10.1); Chloride, Blood 103 mmol/L (98-108); Creatinine, Blood 1.07 mg/dL (0.60-1.20); Globulin, Blood 2.8 g/dL (2.2-4.0); Glucose, Blood 348 mg/dL (70-99); Magnesium, Blood 2.3 mg/dL (1.6-2.4); Potassium, Blood 3.6 mmol/L (3.5-5.5); Salicylate 3.6 mg/dL (2.8-20.0); Sodium, Blood 134 mmol/L (136-145); Total Protein, Blood 6.5 g/dL (6.4-8.2)
[2025-01-30] MEDS ORDERED: Midazolam HCL 1 MG/ML 5MLVIAL IV ONE (06:35)
[2025-01-30] MEDS ORDERED: Cetylpyridinium Chloride 1 EA MISC MT SCH (08:20)
[2025-01-30 08:57] LABS: pH Blood Venous 7.40 (7.34-7.37)
[2025-01-30] MEDS ORDERED: Enoxaparin 40 MG/0.4 ML SYR SC SCH (09:00)
[2025-01-30] MEDS ORDERED: Vitamin D1000 UNI1 PO (11:35)
[2025-01-30] MEDS ORDERED: Iron Chews15 MG PO (11:35)
[2025-01-30] MEDS ORDERED: MAGNESIUM OXID500 MG PO (11:35)
[2025-01-30] MEDS ORDERED: OMEP20ER PO (11:36)
[2025-01-30] MEDS ORDERED: FLUT1DIS2 INH (11:38)
[2025-01-30] MEDS ORDERED: Hydrogen Peroxide 1.5 % Solution MT SCH (12:00)
--- NOTE | 2025-01-30 12:28 | NUR ---
CANCEL EEG: SPOKE WITH [facility]. NO NEUROLOGIST IS AVAILABLE FOR 5-[address] SAEED NOTIFIED. NEW ORDER TO CANCEL EEG.
[2025-01-30 12:43] LABS: Lithium 0.37 mmol/L (0.60-1.20)
[2025-01-30] MEDS ORDERED: VITAMIN D350 MC3 PO (13:45)
[2025-01-30] MEDS ORDERED: FERSU300 PO (13:48)
[2025-01-30] MEDS ORDERED: DOC250 PO (13:49)
[2025-01-30] MEDS ORDERED: Midazolam HCl 1MG / ML 2ML Vial IV PRN ×2 (15:20→19:55)
--- NOTE | 2025-01-30 17:52 | NUR ---
DECREASE IN URINE OUTPUT: NOTIFIED DR. SAEED OF DECREASE IN URINE OUTPUT THIS AFTERNOON. OVER THE LAST 2 HOURS, UOP WAS 25. NEW ORDERS ENTERED.
--- NOTE | 2025-01-30 18:43 | NUR ---
SHIFT SUMMARY: NEURO: PATIENT UNRESPONSIVE THROUGHOUT THE SHIFT. MYOCLONUS ACTIVITY NOTED THROUGHOUT THE SHIFT. PATIENT RESPONDED WELL TO PRN VERSED. AROUND NOON, NOTED THAT PATIENT'S EYES HAD A NEW STRONG UPWARD GAZE. DR. SAEED NOTIFIED (SEE NURSE'S NOTE). EYES EQUAL AND REACTIVE TO LIGHT. MILD WITHDRAWING FROM NOXIOUS STIMULI NOTED IN FEET. POSTURING NOTED AT TIMES IN LEFT UPPER ARM. CARDIAC: PATIENT HR IN THE HIGH 40S-LOW 50S WITH PRECEDEX. ON STANDBY THIS AFTERNOON. HR IN THE 60S-70S FOR THE REST OF THE SHIFT. BLOOD PRESSURE STABLE WITH MAPS >65. PULSES PALPABLE. COOLING BLANKET IN PLACE. RESPIRATORY: VENT SETTINGS AC/VC 14/420/5/35% THROUGHOUT THE SHIFT. AT THE END OF THE SHIFT, RT REPORTED THICK, HEREDIA SECRETIONS. SPO2 100%. ETT 8.0 AND 25 AT THE TEETH. . GI/: OGT IN PLACE AND CLAMPED. LIGHT GREEN LIQUID IN TUBING. BUTLER IN PLACE AND DRAINING FREELY. URINE OUTPUT DECREASED THROUGHOUT THE AFTERNOON. NOTIFIED DR. SAEED (SEE NURSE'S NOTE). PSYCHSOCIAL: FAMILY AT BEDSIDE THIS MORNING. THEY WERE ABLE TO SPEAK WITH DR. HUIZAR. THEY ARE SUPPORTIVE AND ENCOURAGING OF THE PATIENT.
[2025-01-30 19:09] LABS: Alanine Aminotransfer (ALT/SGP 132.0 U/L (12-78); Albumin, Blood 3.3 g/dL (3.4-5.0); Albumin/Globulin Ratio 1.1 (0.8-1.8); Anion Gap 8.0 mmol/L (3-11); Aspartate Aminotrans (AST/SGOT 78.0 U/L (12-37); Bilirubin, Total 0.9 mg/dL (0.1-1.0); Blood Urea Nitrogen 15.0 mg/dL (8-24); CO2, Blood 27.0 mmol/L (21-32); Calcium, Blood 9.0 mg/dL (8.5-10.1); Chloride, Blood 107.0 mmol/L (98-108); Creatinine, Blood 0.78 mg/dL (0.60-1.20); Globulin, Blood 3.0 g/dL (2.2-4.0); Glucose, Blood 93.0 mg/dL (70-99); Potassium, Blood 4.7 mmol/L (3.5-5.5); Sodium, Blood 137.0 mmol/L (136-145); Total Protein, Blood 6.3 g/dL (6.4-8.2)
[2025-01-30] MEDS ORDERED: levETIRAcetam 2,000 MG in NS 100 ML IV ONE (20:05)
--- NOTE | 2025-01-30 21:30 | NUR ---
ASSUMED CARE 1899 ASSUMED CARE OF PT AT THIS TIME, PT REMAINS INTUBATED AND SEDATED, VSS, COOLING BLANKET ON FOR GOAL TEMP OF 36.0C, OG PATENT, CLAMPED, AND SECURED TO ETT WITH PINK TAPE, PLACEMENT VERIFIED BY AUSC, BUTLER PATENT AND DRAINING TO GRAVITY, PIV TO DOLLY AC PATENT WITH PROPOFOL INFUSING PER EMAR AND LR INFUSING AT 125 ML/HR, DOLLY WRIST RESTRAINTS IN PLACE, PT CONTINUES WITH SEIZURE LIKE ACTIVITY, EYES ROLLING UPWARDS AND BLINKING RAPIDLY, FACE TREMORS AND LEFT ARM STIFF AND TURNING INWARDS, VERSED IVP GIVEN PER EMAR, PUPILS REACTIVE LIGHT WITH NO NOTED CORNEAL REFLEX , NO GAG, NO RESPONSE TO PAINFUL STIMULI, HOB UP 35 DEGREES, SIDE RAILS UP X3, BED IN LOW POSITION
[2025-01-31] VITALS (95 sets, daily range): BP systolic 115–165; BP diastolic 70–105
[2025-01-31 03:35] LABS: BASOPHILS ABSOLUTE AUTO 0.01 K/mm3 (0.00-0.23); BASOPHILS PERCENT AUTO 0 % (0-2); EOSINOPHILS ABSOLUTE AUTO 0.00 K/mm3 (0.00-0.68); EOSINOPHILS PERCENT AUTO 0 % (0-6); Hematocrit 36.4 % (37.0-53.0); Hemoglobin 12.4 g/dL (13.5-17.5); IMMATURE GRAN ABSOLUTE AUTO 0.10 K/mm3 (0.00-0.10); IMMATURE GRAN PERCENT AUTO 1 % (0-1); LYMPHOCYTES ABSOLUTE AUTO 0.88 K/mm3 (0.84-5.20); LYMPHOCYTES PERCENT AUTO 5 % (21-46); MONOCYTES ABSOLUTE AUTO 1.65 K/mm3 (0.16-1.47); MONOCYTES PERCENT AUTO 9 % (4-13); Mean Corpuscular HGB Conc 34.1 g/dL (31.5-36.5); NEUTROPHILS ABSOLUTE AUTO 16.07 K/mm3 (1.96-9.15); NEUTROPHILS PERCENT AUTO 86 % (41-73); NRBC ABSOLUTE 0.00 K/mm3 (0.00-0.02); NRBC Auto 0.0 /100 WBC (0.0-0.2); Platelet Count 180 K/mm3 (150-400); RDW Coefficient Variation 13.1 % (11.7-14.2); RDW Standard Deviation 44.0 fL (35.1-46.3)
[2025-01-31 03:37] LABS: Mean Corpuscular Volume 92 fL (80-100)
[2025-01-31 03:58] LABS: Alanine Aminotransfer (ALT/SGP 107.0 U/L (12-78); Albumin, Blood 3.2 g/dL (3.4-5.0); Albumin/Globulin Ratio 1.1 (0.8-1.8); Anion Gap 8.0 mmol/L (3-11); Aspartate Aminotrans (AST/SGOT 47.0 U/L (12-37); Bilirubin, Total 0.6 mg/dL (0.1-1.0); Blood Urea Nitrogen 15.0 mg/dL (8-24); CO2, Blood 27.0 mmol/L (21-32); Calcium, Blood 8.9 mg/dL (8.5-10.1); Chloride, Blood 107.0 mmol/L (98-108); Creatinine, Blood 0.8 mg/dL (0.60-1.20); Globulin, Blood 2.9 g/dL (2.2-4.0); Glucose, Blood 121.0 mg/dL (70-99); Potassium, Blood 3.9 mmol/L (3.5-5.5); Sodium, Blood 138.0 mmol/L (136-145); Total Protein, Blood 6.1 g/dL (6.4-8.2)
[2025-01-31] MEDS ORDERED: Pantoprazole Sodium 40 MG Injection IV SCH (06:00)
--- NOTE | 2025-01-31 06:08 | NUR ---
SHIFT SUMMARY PT REMAINS INTUBATED AND SEDATED, RASS -5, NO GAG, NO CORNEAL REFLEX TO LEFT EYE WITH MINIMAL REFLEX NOTED TO RIGHT EYE, PEARLA, VSS, AFEBRILE WITH TMAX 98.4f, COOLING BLANKET ON WITH TARGET TEMP OF 36.0C, OG PLACED TO LIS WITH NOTED CLEAR GREEN/BROWN BILE 300 ML IN SUCTION CONTAINER, PT CONTINUES TO HAVE MIOCLONIC SEIZURES WITH NOTED EYES TURNING UPWARDS AND BLINKING RAPIDLY, MEDICATED WITH VERSED 4 MG PER EMAR, LARGE AMOUNT OF ORAL SECRETIONS NOTED, THIN CLEAR SECRETIONS, BUTLER PATENT AND DRAINING YELLOW WITH PINK SEDIMENT URINE TO GRAVITY, SCDs ON BLE, PIV TO DOLLY AC PATENT, LR INFUSING AT 125 ML/HR PROPOFOL INFUSING PER EMAR, PT TURNED AND REPOSITIONED EVERY 2 HOURS, DOLLY WRIST RESTRAINTS REMAIN IN PLACE, HOB UP 35 DEGREES, SIDE RAILS UP X3, BED IN LOW POSITION
--- NOTE | 2025-01-31 07:26 | NUR ---
ASSUMPTION OF CARE: ASSUMED CARE OF PATIENT. PATIENT RESTING CALMLY IN THE BED TOLERATING THE VENT. SETTINGS CONTINUE TO BE AC/VC 14/520/5/35%. SPO2 100%. HR IN THE 70S. BLOOD PRESSURES STABLE WITH MAPS >65. OGT SET UP TO LOW INTERMITTANT SUCTION WITH DARK GREEN IN THE CANISTER AND PINK/ORANGE WITH SOLID PIECES IN THE LINE. IN-LINE SUCTION HAS PINK, FROTHY IN THE CANISTER. BUTLER IS IN PLACE AND DRAINING. THE TUBING HAS BEEN STAINED PINK WITH SEDIMENT. SOME SMALL CLOTS NOTED IN THE LINE. SCDS ON.
[2025-01-31] MEDS ORDERED: Midazolam HCL 50 MG in NS 40 ML IV SCH (08:55)
[2025-01-31] MEDS ORDERED: Magnesium Sulf 2 GM/Water 50ML 50 ML IV ONE (12:45)
[2025-01-31 13:38] LABS: Albumin, Blood 3.2 g/dL (3.4-5.0); Anion Gap 8 mmol/L (3-11); Blood Urea Nitrogen 11 mg/dL (8-24); CO2, Blood 29 mmol/L (21-32); Calcium, Blood 8.8 mg/dL (8.5-10.1); Chloride, Blood 107 mmol/L (98-108); Creatinine, Blood 0.77 mg/dL (0.60-1.20); Glucose, Blood 96 mg/dL (70-99); Phosphorus, Blood 2.4 mg/dL (2.5-4.9); Potassium, Blood 3.4 mmol/L (3.5-5.5); Sodium, Blood 141 mmol/L (136-145)
[2025-01-31] MEDS ORDERED: Acetaminophen 160MG / 5ML 10.15 UDC PO PRN (15:05)
[2025-01-31] MEDS ORDERED: Potassium Phosphate Dibasic 30 MM in Dextrose 5% 500 ML IV STA (15:31)
--- NOTE | 2025-01-31 19:20 | NUR ---
SHIFT SUMMARY: NEURO: NO PURPOSEFUL MOVEMENT NOTED IN EXTREMITIES THROUGHOUT THE SHIFT. NO RESPONSE TO TRAPEZEIUS SQUEEZE. PUPILS REMAINED REACTIVE TO LIGHT. CORNEAL REFLEX NOTED AT THE 1200 AND 1600 ASSESSMENTS. NO CORNEAL REFLEX NOTED AT THE END OF SHIFT. PATIENT STARTED ON VERSED AT 2MG/HR THIS MORNING. NO MYOCLONIC JERKING OR FACIAL TWITCHING NOTED ONCE THIS WAS STARTED. PROPOFOL REMAINED AT 40 MCG/KG/MIN. UTLIZED COOLING BLANKET, ICE PACKS AND FANS TO MAINTAIN TEMPERATURE. PATIENT REACHED A MAX TEMPERATURE OF 100.2. CARDIAC: HR IN THE 60S-70S. PATIENT EXPERIENCED BIGEMINY TODAY. ONCE PATIENT RECEIVED DOSE OF IV MAGNESIUM, THE BIGEMINY ABATED. PATIENT CONTINUED TO EXPERIENCE PVCS FOR THE REST OF THE SHIFT. AT THE END OF SHIFT, PATIENT'S HR DROPPED INTO THE HIGH 40S. NEW ORDERS FOR DOPAMINE RECEIVED WITH TITRATION PARAMETERS. RESPIRATORY: PATIENT OVERBREATHING THE VENT THROUGHOUT THE SHIFT WITH THE EXCEPTION OF AT THE END OF SHIFT. AT THE SAME TIME THE PATIENT WAS EXPERIENCING BRADYCARDIA, HE STARTED TO RIDE THE VENT. THIS RESOLVED WITH THE RESOLUTION OF THE BRADYCARDIA. VENT SETTINGS AC/VC 14/520/5/30% AT THE END OF SHIFT. SPO2 100%. GI/: BUTLER IN PLACE AND DRAINING FREELY. IN CONTRAST TO CAR SHAKEOUT OPERATOR, URINE WAS CLEAR AND LIGHT YELLOW. ABOUT 300-400ML OF URINE PRODUCED EVERY 2 HOURS. VITAL HIGH PROTEIN STARTED AT TRICKLE RATE OF 10ML/HR PER MD ORDERS. NO BOWEL MOVEMENT. PSYCHSOCIAL: PATIENT'S MOTHER AND DAUGHTER AT BEDSIDE THIS AFTERNOON. THEY WERE ABLE TO HAVE AN EXTENDED CONVERSATION WITH DR. GUERRERO. AT THIS TIME THEY REPORTED THAT THEY WOULD LIKE TO HAVE MORE INFORMATION (SUCH THE CT SCAN) TO HELP MAKE DECISIONS ABOUT PLAN OF CARE. THEY ARE CALM AND ENCOURAGING OF THE PATIENT AND STAFF.
--- NOTE | 2025-01-31 21:07 | NUR ---
ASSUME CARE: PT INTUBATED AND SEDATED, RASS -5. PROPOFOL GTT AT 35 MCG/KG/MIN, VERSED AT 2 MG/HR. PT HAS UPWARD GAZE, PUPILS EQUAL AND REACTIVE. VERSED INITIALLY AT 1.5 MG/HR AT SHIFT CHANGE, SOME MYOCLONIC JERKING NOTED WITH REPORT, VERSED INCREASED TO 2, NO JERKING NOTED WITH ASSESSMENT. BP STABLE, MONITOR SHOWS SINUS NICHOLE W/ PVCs, RATE 45-60s. SPO2>95% ON VENT, SETTINGS ACVC 14/520/5/30%. OGT PATENT INFUSING TF AT GOAL. BUTLER PATENT DRAINING LIGHT YELLOW URINE TO GRAVITY. COOLING BLANKET IN PLACE. WILL UPDATE NEEDED.
[2025-02-01] VITALS (91 sets, daily range): BP systolic 128–186; BP diastolic 63–107
[2025-02-01 01:47] LABS: Albumin, Blood 3.1 g/dL (3.4-5.0); Anion Gap 10 mmol/L (3-11); Blood Urea Nitrogen 10 mg/dL (8-24); CO2, Blood 25 mmol/L (21-32); Calcium, Blood 8.5 mg/dL (8.5-10.1); Chloride, Blood 109 mmol/L (98-108); Creatinine, Blood 0.63 mg/dL (0.60-1.20); Glucose, Blood 121 mg/dL (70-99); Phosphorus, Blood 3.1 mg/dL (2.5-4.9); Potassium, Blood 3.9 mmol/L (3.5-5.5); Sodium, Blood 140 mmol/L (136-145)
--- NOTE | 2025-02-01 06:07 | NUR ---
SHIFT SUMMARY: PT INTUBATED AND SEDATED, RASS -5. PT CONTINUES TO HAVE UPWARD GAZE, PUPILS REACTIVE TO LIGHT, RIGHT PUPIL LARGER THAN LEFT. PT COUGHS W/ORAL SUCTIONING, APPEARED TO HAVE SWALLOW REFLEX W/ORAL CARE. PT DOES NOT WITHDRAW F/PAINFUL STIMULI. CORNEAL REFLEX NEGATIVE T/O SHIFT. SPO2>95% ON VENT, SETTINGS 14/520/5/30%. SBP 140-150s, MAP>65. MONITOR SHOWS SINUS NICHOLE RATE 40-50s, DOPAMINE GTT STARTED PT HR WAS MAINTAINING BELOW 40. DOPAMINE GTT AT 5MCG/KG/MIN. PROPOFOL AT 25 MCG/KG/MIN. VERSED ON SB AT 0500, PT HAS STOPPED MYOCLONIC JERKING. COOLING BLANKET REMOVED, PT AFEBRILE. OGT PATENT INFUSING TF. BUTLRE PATENT DRAINING TO GRAVITY. WILL REPORT TO ONCOMING RN.
[2025-02-01 09:17] LABS: BASOPHILS ABSOLUTE AUTO 0.01 K/mm3 (0.00-0.23); BASOPHILS PERCENT AUTO 0 % (0-2); EOSINOPHILS ABSOLUTE AUTO 0.02 K/mm3 (0.00-0.68); EOSINOPHILS PERCENT AUTO 0 % (0-6); Hematocrit 36.5 % (37.0-53.0); Hemoglobin 12.3 g/dL (13.5-17.5); IMMATURE GRAN ABSOLUTE AUTO 0.06 K/mm3 (0.00-0.10); IMMATURE GRAN PERCENT AUTO 0 % (0-1); LYMPHOCYTES ABSOLUTE AUTO 0.79 K/mm3 (0.84-5.20); LYMPHOCYTES PERCENT AUTO 5 % (21-46); MONOCYTES ABSOLUTE AUTO 1.47 K/mm3 (0.16-1.47); MONOCYTES PERCENT AUTO 9 % (4-13); Mean Corpuscular HGB Conc 33.7 g/dL (31.5-36.5); Mean Corpuscular Volume 93 fL (80-100); NEUTROPHILS ABSOLUTE AUTO 13.38 K/mm3 (1.96-9.15); NEUTROPHILS PERCENT AUTO 85 % (41-73); NRBC ABSOLUTE 0.00 K/mm3 (0.00-0.02); NRBC Auto 0.0 /100 WBC (0.0-0.2); Platelet Count 177 K/mm3 (150-400); RDW Coefficient Variation 13.3 % (11.7-14.2); RDW Standard Deviation 45.7 fL (35.1-46.3)
--- NOTE | 2025-02-01 13:30 | NUR ---
CALLED TO ROOM FOR SUPPORT. PT'S MOTHER, MANPREET, TWO OF HOSEA'S CLOSE FRIENDS, PRIMARY RN, [facility] (CLA) DONOR RN GRAHAM AND THIS PC RN. MANPREET REPORTS PT WOULD WANT TO BE A DONOR AND HELP OTHERS. "HE WAS ALWAYS GIVING." PT'S FRIENDS THAT WERE PRESENT ALSO REPORT PT WOULD WANT TO CONTINUE HELPING OTHERS IN ANY WAY POSSIBLE. 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 CLA REVIEWED THE DONOR PROCESS FOR BOTH NATURAL S/P EXTUBATION AND BRAIN . MOTHER WAS ACTIVELY ENGAGED AND HAD MANY QUESTIONS. AT CONCLUSION OF VISIT, PT'S MOTHER NEEDS TIME TO CONTACT HER DAUGHTER PRIOR TO MAKING A DECISION. PLAN: MEET WITH CARE TEAM AND PT'S MOTHER TOMORROW 02/02/25 @ 1300. CONTINUE WITH CURRENT TX. THERAPUTIC LISITNING PROVIDED.
[2025-02-01 16:51] LABS: Albumin, Blood 2.8 g/dL (3.4-5.0); Anion Gap 7 mmol/L (3-11); Blood Urea Nitrogen 11 mg/dL (8-24); CO2, Blood 29 mmol/L (21-32); Calcium, Blood 8.7 mg/dL (8.5-10.1); Chloride, Blood 107 mmol/L (98-108); Creatinine, Blood 0.66 mg/dL (0.60-1.20); Glucose, Blood 138 mg/dL (70-99); Phosphorus, Blood 3.4 mg/dL (2.5-4.9); Potassium, Blood 3.8 mmol/L (3.5-5.5); Sodium, Blood 139 mmol/L (136-145)
--- NOTE | 2025-02-01 18:48 | NUR ---
HOSEA CONTINUES ON THE VENTILATOR, SETTINGS REMAIN UNCHANGED, HIS PUPILS ARE LARGER, LEFT QUICKER TO REACT THAN THE RIGHT. HE HAS DONE SOME COUGHING WITH MOVEMENT AND REPOSITIONING, HE HAS DONE SOME SWALLOW WITH ORAL CARE, HE HAS DONE SOME UPWARD RIGHT GAZE. NO PURPOSEFUL OR REACTIVE MOVEMENT. LENGTHY DISCUSSION ABOUT END OF LIFE AND DONATION OF ORGANS WITH PALLIATIVE CARE AND [facility]. NO DECISIONS MADE.
[2025-02-02] VITALS (66 sets, daily range): BP systolic 155–206; BP diastolic 82–138
[2025-02-02 03:54] LABS: BASOPHILS ABSOLUTE AUTO 0.01 K/mm3 (0.00-0.23); BASOPHILS PERCENT AUTO 0 % (0-2); EOSINOPHILS ABSOLUTE AUTO 0.00 K/mm3 (0.00-0.68); EOSINOPHILS PERCENT AUTO 0 % (0-6); Hematocrit 34.5 % (37.0-53.0); Hemoglobin 11.8 g/dL (13.5-17.5); IMMATURE GRAN ABSOLUTE AUTO 0.07 K/mm3 (0.00-0.10); IMMATURE GRAN PERCENT AUTO 1 % (0-1); LYMPHOCYTES ABSOLUTE AUTO 0.67 K/mm3 (0.84-5.20); LYMPHOCYTES PERCENT AUTO 5 % (21-46); MONOCYTES ABSOLUTE AUTO 1.32 K/mm3 (0.16-1.47); MONOCYTES PERCENT AUTO 9 % (4-13); Mean Corpuscular HGB Conc 34.2 g/dL (31.5-36.5); Mean Corpuscular Volume 92 fL (80-100); NEUTROPHILS ABSOLUTE AUTO 12.04 K/mm3 (1.96-9.15); NEUTROPHILS PERCENT AUTO 85 % (41-73); NRBC ABSOLUTE 0.00 K/mm3 (0.00-0.02); NRBC Auto 0.0 /100 WBC (0.0-0.2); Platelet Count 198 K/mm3 (150-400); RDW Coefficient Variation 13.1 % (11.7-14.2); RDW Standard Deviation 43.9 fL (35.1-46.3)
[2025-02-02] MEDS ORDERED: Midazolam HCl 1MG / ML 2ML Vial IV ONE (04:40)
[2025-02-02 05:53] LABS: Alanine Aminotransfer (ALT/SGP 59.0 U/L (12-78); Albumin, Blood 2.9 g/dL (3.4-5.0); Albumin/Globulin Ratio 0.7 (0.8-1.8); Anion Gap 7.0 mmol/L (3-11); Aspartate Aminotrans (AST/SGOT 67.0 U/L (12-37); Bilirubin, Total 0.6 mg/dL (0.1-1.0); Blood Urea Nitrogen 14.0 mg/dL (8-24); CO2, Blood 27.0 mmol/L (21-32); Calcium, Blood 8.7 mg/dL (8.5-10.1); Chloride, Blood 107.0 mmol/L (98-108); Creatinine, Blood 0.56 mg/dL (0.60-1.20); Globulin, Blood 4.0 g/dL (2.2-4.0); Glucose, Blood 142.0 mg/dL (70-99); Potassium, Blood 5.0 mmol/L (3.5-5.5); Sodium, Blood 136.0 mmol/L (136-145); Total Protein, Blood 6.9 g/dL (6.4-8.2)
--- NOTE | 2025-02-02 06:26 | NUR ---
SHIFT SUMMARY PT REMAINS INTUBATED ON VENT, SETTINGS UNCHANGED, NO PURPOSEFUL OR REACTIVE MOVEMENT NOTED, TMAX 99.7f, SB 40-50s MOST OF THIS SHIFT WITH SBP 160-170 S, NOTED AT 0300 SBP 190s, NOTIFIED MD WITH NO NEW ORDERS, AT 0430 SBP 190s WITH HR 110-120s WITH NOTED DECORTICATE POSTURING, EYES ROLLED UPWARDS, AND BUCKING THE VENT, DIAPHORETIC, CALLED AND NOTIFIED MD WITH ONE TIME ORDER RECEIVED FOR VERSED 4 MG IVP, VERSED EFFECTIVE WITH HR 50-60s AND SBP 150-160s, NO LONGER POSTURING WITH TEMP 98.9f, HOB UP 35 DEGREES, BED IN LOW POSITION , SIDE RAILS UP X3
[2025-02-02] MEDS ORDERED: Midazolam HCl 1MG / ML 2ML Vial IV PRN ×2 (12:45→13:05)
--- NOTE | 2025-02-02 14:30 | NUR ---
GOALS OF CARE MEETING WITH PT'S MOTHER, CARE TEAM INCLUDING [facility] (DONOR TEAM). DR. JUNIOR ANSWERED MEDICAL QUESTIONS TO MOTHERS SATISFACTION. PRIMARY RN PROVIDED REAL TIME UPDATES RE: SYMPTOMS AND TX. THERAPUTIC LISTENING PROVIDED. TOWARDS END OF VISIT, [facility] ENTERED ROOM TO TALK ABOUT THE DONOR PROCESS. MOTHER, MANPREET WOULD LIKE TO START TO DONOR MATCHING PROCESS. HER MAIN CONCERN IS TIMING D/T PT'S DTR BEING AWAY THIS WEEKEND AT [employer]. PLAN: CONTINUE TO SUPPORT PT WITH CURRENT TREATMENT PLAN. IF BRAIN OCCURS PRIOR TO SUNDAY AFTERNOON, PLAN TO GO TO OPERATING ROOM FOR ORGAN RECOVERY. IF BRAIN DOES NOT OCCUR BY SUNDAY, PLAN TO LIBERATE FROM THE VENT ON SUNDAY. VERY IMPORTANT TO MOTHER THAT SHE BE ABLE TO BATHE HIM PRIOR TO GOING TO THE OPERATING ROOM. ALSO, ONCE IN THE OR PLEASE TAKE PICTURES OF ALL TATTOOS PRIMARY RN NOTIFIED.
[2025-02-02] MEDS ORDERED: FentaNYL Citrate 50 MCG/ML 2 ML Injection IV PRN (14:45)
[2025-02-02] MEDS ORDERED: NS 500 ML IV SCH (15:05)
[2025-02-02 18:02] LABS: BASOPHILS ABSOLUTE AUTO 0.02 K/mm3 (0.00-0.23); BASOPHILS PERCENT AUTO 0 % (0-2); EOSINOPHILS ABSOLUTE AUTO 0.02 K/mm3 (0.00-0.68); EOSINOPHILS PERCENT AUTO 0 % (0-6); Hematocrit 36.6 % (37.0-53.0); Hemoglobin 12.6 g/dL (13.5-17.5); IMMATURE GRAN ABSOLUTE AUTO 0.06 K/mm3 (0.00-0.10); IMMATURE GRAN PERCENT AUTO 0 % (0-1); LYMPHOCYTES ABSOLUTE AUTO 1.34 K/mm3 (0.84-5.20); LYMPHOCYTES PERCENT AUTO 10 % (21-46); MONOCYTES ABSOLUTE AUTO 1.74 K/mm3 (0.16-1.47); MONOCYTES PERCENT AUTO 13 % (4-13); Mean Corpuscular HGB Conc 34.4 g/dL (31.5-36.5); Mean Corpuscular Volume 90 fL (80-100); NEUTROPHILS ABSOLUTE AUTO 10.22 K/mm3 (1.96-9.15); NEUTROPHILS PERCENT AUTO 76 % (41-73); NRBC ABSOLUTE 0.00 K/mm3 (0.00-0.02); NRBC Auto 0.0 /100 WBC (0.0-0.2); Platelet Count 230 K/mm3 (150-400); RDW Coefficient Variation 13.0 % (11.7-14.2); RDW Standard Deviation 42.8 fL (35.1-46.3)
[2025-02-02 18:17] LABS: Prothrombin Time Results 11.7 Sec (9.7-11.5)
[2025-02-02 18:32] LABS: Source, Urine Foley catheter
--- NOTE | 2025-02-02 18:33 | NUR ---
HOSEA REMAINS UNRESPONSIVE ON THE VENTILATOR. PT'S PUPILS REMAIN LARGE AND UNREACTIVE, TRAPEZIOUS SQUEEZE NO LONGER ILLICITS RESPONSE. HE HAD A 45 MINUTE BOUT OF DECERABATE POSTURING WITH COUGHING AND INCREASE IN HEART RATE, RESP PATTERN AND TEMPERATURE. HE WAS MEDICATED WITH MIDAZOLAM 2MG. HE HAS CONTINUED WITH GOOSE SKIN FLESH T/O THE DAY. TEMP HAS RETURNED TO NORMAL. OVER 2L URINE OUTPUT, LOWER EXTREMETIES REMAIN PALE, MOTTLED AND COOL TO THE TOUCH. MOM HAD CONVERSATION WITH STAFF FROM [facility], THE DONATION PROCESS HAS BEEN INITIATED. FAMILY RELATED TIME CONSTRAINTS, PLAN IN PLACE WITH CLA.
[2025-02-02 18:37] LABS: Bilirubin, Urine Neg (Neg); Glucose Qualitative, Urine Neg (Neg); Ketones, Urine Neg (Neg); Leukocyte Esterase, Urine Neg (Neg); Protein, Urine 1+ (Neg); Specific Gravity, Urine 1.010 (1.003-1.022); Urobilinogen, Urine 1+ (Normal)
[2025-02-02] MEDS ORDERED: NiCARdipine HCL 50 MG in NS 250 ML IV SCH (18:45)
[2025-02-02] MEDS ORDERED: Albuterol 2.5 MG/3 ML VIAL INH SCH (18:50)
[2025-02-02 18:54] LABS: Magnesium, Blood 1.7 mg/dL (1.6-2.4)
[2025-02-02 19:00] LABS: Alanine Aminotransfer (ALT/SGP 50.0 U/L (12-78); Albumin, Blood 3.0 g/dL (3.4-5.0); Albumin/Globulin Ratio 0.8 (0.8-1.8); Aspartate Aminotrans (AST/SGOT 43.0 U/L (12-37); Bilirubin, Direct 0.2 mg/dL (0.0-0.3); Bilirubin, Indirect 0.3 mg/dL (0.1-0.7); Bilirubin, Total 0.5 mg/dL (0.1-1.0); Globulin, Blood 3.7 g/dL (2.2-4.0); Total Protein, Blood 6.7 g/dL (6.4-8.2)
[2025-02-02 19:20] LABS: Color, Urine Pale Yellow (P-Yellow); Red Blood Cells, Urine 0-2 /hpf (0-2); White Blood Cells, Urine 0-2 /hpf (0-5)
[2025-02-02 19:21] LABS: CORONAVIRUS COVID-19 AG Negative (NEGATIVE)
[2025-02-02 19:21] LABS: pH Blood Arterial 7.49 (7.35-7.45)
[2025-02-02 19:37] LABS: Anion Gap 7.0 mmol/L (3-11); Bilirubin, Direct 0.2 mg/dL (0.0-0.3); Blood Urea Nitrogen 13.0 mg/dL (8-24); CO2, Blood 28.0 mmol/L (21-32); Calcium, Blood 8.9 mg/dL (8.5-10.1); Chloride, Blood 107.0 mmol/L (98-108); Creatinine, Blood 0.57 mg/dL (0.60-1.20); Glucose, Blood 136.0 mg/dL (70-99); Lactate Dehydrogenase (Ld),Bld 304.0 U/L (100-240); Phosphorus, Blood 2.6 mg/dL (2.5-4.9); Sodium, Blood 139.0 mmol/L (136-145)
[2025-02-02 19:40] LABS: Potassium, Blood 3.0 mmol/L (3.5-5.5)
--- NOTE | 2025-02-02 20:08 | NUR ---
ASSUMED CARE ASSUMED CARE OF PT AT 1915, PT REMAINS INTUBATED ON VENT AC/VC 14/520/5/30%, NO SEDATTION, UNRESPONSIVE TO PAINFUL OR TACTILE STIMULI, NOTED COUGH WITH IN LINE SUCTION, PUPILS NONREACTIVE TO LIGHT, NO GAG OR CORNEAL REFLEX NOTED, ART LINE TO DIMITRY PATENT, LINE ZEROED WITH GOOD WAVEFORM NOTED, AFEBRILE AT THIS TIME, SR 70-90s WITH PACs AND PVCs NOTED, BUTLER PATENT AND DRAINING TO GRAVITY, HOB UP 35 DEGREES, SIDE RAILS UP X3 BED IN LOW POSITION, NICARDIPINE GTT STARTED AND WILL TITIRATE PER EMAR AND ORDERS FOR SBP GOAL OF 180
[2025-02-02 20:27] LABS: pH Blood Arterial 7.49 (7.35-7.45)
[2025-02-02] MEDS ORDERED: CefTRIAXone Sodium 1,000 MG in NS 100 ML IV SCH (21:00)
[2025-02-02] MEDS ORDERED: Mag Sulfate 1 GM/D5% 100ML 100 ML IV ONE (21:45)
[2025-02-03] VITALS (17 sets, daily range): BP systolic 121–176; BP diastolic 60–86
--- NOTE | 2025-02-03 01:46 | NUR ---
UPDATE TEMP 96.1F CORE TEMP, RECHECKED TEMP VIA RECTAL PROBE WITH SAME TEMP NOTED OF 96.5f, PLACED BAREHUGGER ON PT TO RAISE TEMP >97.0F
[2025-02-03 03:40] LABS: Magnesium, Blood 2.2 mg/dL (1.6-2.4); Phosphorus, Blood 3.2 mg/dL (2.5-4.9); Potassium, Blood 3.7 mmol/L (3.5-5.5)
[2025-02-03 05:04] LABS: pH Blood Arterial 7.45 (7.35-7.45)
[2025-02-03 05:17] LABS: Source, Urine Foley catheter
[2025-02-03 05:27] LABS: BASOPHILS ABSOLUTE AUTO 0.02 K/mm3 (0.00-0.23); BASOPHILS PERCENT AUTO 0 % (0-2); EOSINOPHILS ABSOLUTE AUTO 0.06 K/mm3 (0.00-0.68); EOSINOPHILS PERCENT AUTO 1 % (0-6); Hematocrit 36.2 % (37.0-53.0); Hemoglobin 12.2 g/dL (13.5-17.5); IMMATURE GRAN ABSOLUTE AUTO 0.06 K/mm3 (0.00-0.10); IMMATURE GRAN PERCENT AUTO 1 % (0-1); LYMPHOCYTES ABSOLUTE AUTO 1.03 K/mm3 (0.84-5.20); LYMPHOCYTES PERCENT AUTO 9 % (21-46); MONOCYTES ABSOLUTE AUTO 1.59 K/mm3 (0.16-1.47); MONOCYTES PERCENT AUTO 14 % (4-13); Mean Corpuscular HGB Conc 33.7 g/dL (31.5-36.5); Mean Corpuscular Volume 91 fL (80-100); NEUTROPHILS ABSOLUTE AUTO 8.39 K/mm3 (1.96-9.15); NEUTROPHILS PERCENT AUTO 75 % (41-73); NRBC ABSOLUTE 0.00 K/mm3 (0.00-0.02); NRBC Auto 0.0 /100 WBC (0.0-0.2); Platelet Count 235 K/mm3 (150-400); RDW Coefficient Variation 13.0 % (11.7-14.2); RDW Standard Deviation 43.6 fL (35.1-46.3)
[2025-02-03 05:33] LABS: Bilirubin, Urine Neg (Neg); Color, Urine Yellow (P-Yellow); Glucose Qualitative, Urine Neg (Neg); Ketones, Urine Neg (Neg); Leukocyte Esterase, Urine Neg (Neg); Protein, Urine 1+ (Neg); Specific Gravity, Urine 1.010 (1.003-1.022); Urobilinogen, Urine 2+ (Normal)
[2025-02-03 05:44] LABS: Prothrombin Time Results 11.6 Sec (9.7-11.5)
[2025-02-03 05:44] LABS: Red Blood Cells, Urine TNTC /hpf (0-2); White Blood Cells, Urine Not Seen /hpf (0-5)
[2025-02-03 05:49] LABS: Amylase, Blood 18.0 U/L (25-115); Magnesium, Blood 2.1 mg/dL (1.6-2.4)
--- NOTE | 2025-02-03 06:10 | NUR ---
SHIFT SUMMARY PT REMAINS INTUBATED AND UNRESPONSIVE WITH MINIMAL COUGH REFLEX NOTED WITH IN-LINE SUCTION, SR-ST WITH OCC BIGEMINY AND OCC PACs/PVCs, RATE OF 70-110s, ART LINE SBP 150-170s MAINTAINED WITH NICARDIPINE GTT AND TITRATED PER EMAR FOR SBP <180, TEMP 96.1-98.9f CORE TEMP, ON BARE HUGGER FOR 1 HOUR , POTASSIUM AND MAG REPLACEMENT GIVEN, NO ACUTE CHANGES THIS SHIFT, BUTLER PATENT AND DRAINING 50-200 ML/HR, URINE REMAINS CLEAR YELLOW, ART LINE TO DIMITRY PATENT WITH GOOD WAVE FORM NOTED, HANNY TL PICC PATENT, LR INFUSING AT 50 ML/HR, MEDICATED WITH VERSED 2 MG X2 , DECREASED STIMULI MUCH POSSIBLE THIS SHIFT WITH LIGHTS OUT, QUIET ALARMS ON MONITOR IN ROOM AND SPEAKLY QUIETLY WITH SLOW TURNS AND REPOSITIONING, HOB UP 45 DEGREES, SIDE RAILS UP X3, BED IN LOW POSITION
[2025-02-03 06:30] LABS: Alanine Aminotransfer (ALT/SGP 45.0 U/L (12-78); Albumin, Blood 3.0 g/dL (3.4-5.0); Albumin/Globulin Ratio 0.9 (0.8-1.8); Anion Gap 6.0 mmol/L (3-11); Aspartate Aminotrans (AST/SGOT 40.0 U/L (12-37); Bilirubin, Direct 0.3 mg/dL (0.0-0.3); Bilirubin, Indirect 0.3 mg/dL (0.1-0.7); Bilirubin, Total 0.6 mg/dL (0.1-1.0); Blood Urea Nitrogen 17.0 mg/dL (8-24); CO2, Blood 27.0 mmol/L (21-32); Calcium, Blood 8.5 mg/dL (8.5-10.1); Chloride, Blood 109.0 mmol/L (98-108); Creatinine, Blood 0.59 mg/dL (0.60-1.20); Globulin, Blood 3.5 g/dL (2.2-4.0); Glucose, Blood 135.0 mg/dL (70-99); Phosphorus, Blood 3.1 mg/dL (2.5-4.9); Potassium, Blood 3.4 mmol/L (3.5-5.5); Sodium, Blood 139.0 mmol/L (136-145); Total Protein, Blood 6.5 g/dL (6.4-8.2)
[2025-02-03] MEDS ORDERED: Potassium Chl 20MEQ/Water100ML 100 ML IV SCH (06:40)
--- NOTE | 2025-02-03 09:06 | NUR ---
ASSUMPTION OF CARE: THIS RN ASSUMED CARE OF PT AT APPROX 0700, BEDSIDE REPORT FROM NOC RN. PT UNRESPONSIVE, RASS -5. PUPILS 6MM, UNRESPONSIVE. NEGATIVE DOLLS EYES. CORNEAL REFLEX ABSENT ON INITIAL ASSESSMENT. NOT RESPONSIVE TO VERBAL OR PHYSICAL STIMULI. ABSENT COUGH AND GAG. SPO2 >90% ON VENTILATOR, SETTINGS AC/VC 14/520/5/30%. RR >14. SBP 150-160'S, NICARDIPINE GTT INFUSING AT 7.5 MG/HR. HR 80-90'S, UP TO 100'S W/ ANY STIMULATION. SINUS RHYTHM ON MONITOR. AFEBRILE W/ RECTAL TEMP PROBE. LR INFUSING AT 50 ML/HR. BUTLER CATH IN PLACE, DRAINING YELLOW URINE TO GRAVITY. ARTERIAL LINE TO DIMITRY, PICC TO HANNY. POTASSIUM REPLACEMENT INFUSING AT THIS TIME.
--- NOTE | 2025-02-03 11:03 | NUR ---
Spiritual Care Visit. Pt. is intubated and not responsive. Pts. mother is at bedside and welcomes my visit. Mother is pleasant. Facilitated a life review and established rapport with the Mother. Considered matters of bridger and belief. Mother verbalized the expected care plan for the Pt. which includes organ donation. This unhairing inspector offered the opportunity to offer a "Donor Walk" for the Pt. Pts. mom verbalized that the Pt. wished "his life to mean something." and that she welcomed an honor walk to fulfill the Pts. wish. Prayed with Pts. mom. Mom verbalized gratitude for the spiritual care visit and welcomed this unhairing inspector to return. Updated attending nurses and other unhairing inspector of the [place] [facility] request. Will remain available to the Pt.
--- NOTE | 2025-02-03 12:53 | NUR ---
UPDATE: CLA REQUESTS REPEAT TYPE & SCREEN, ECHO, AND BRONCHOSCOPY TODAY W/ SPUTUM SAMPLES COLLECTED FROM R/L LUNGS. DR. JUNIOR NOTIFIED, PLANS FOR BRONCH AT 1400. RT NOTIFIED. ECHO ORDERS PLACED, TYPE & SCREEN DRAWN.
[2025-02-03 13:36] LABS: pH Blood Arterial 7.46 (7.35-7.45)
--- NOTE | 2025-02-03 14:11 | NUR ---
BRONCHOSCOPY PROCEDURE 1408 DR. JUNIOR AT BEDSIDE 1410 50MCG FENTANYL ADMINISTERED PER DR. JUNIOR 1411 RT ZOE AT BEDSIDE. PT ON VENT AC/VC 14/520/5/30%, SPO2 100%. HR 96, ARTERIAL BP 145/73, MAP 91, RR 16, ETCO2 35, TEMP 98.[address] JUNIOR INITIATING BRONCH 1418 ENTERING RIGHT LUNG, PT HR UP TO 150'S. SBP 150'S. ORDER FOR 100MCG FENTANYL NOW PER DR. JUNIOR 1420 RIGHT LUNG SAMPLE COLLECTED, 100MCG FENTANYL ADMINISTERED 1421 HR 89, ART BP 146/67, MAP 90, SPO2 100%, RR 14, ETCO2 41 1423 SUCTIONING RIGHT LUNG, PT W/ COUGH NOTED. HR 140'S 1424 ENTERING LEFT LUNG, 10CC LAVAGE, SAMPLE COLLECTED 1425 HR 147, ART BP 183/99, SPO2 100%, ETCO2 40, RR 29 1426 BRONCH COMPLETED
[2025-02-03] MEDS ORDERED: FentaNYL Citrate 50 MCG/ML 2 ML Injection ONE (14:20)
[2025-02-03] MEDS ORDERED: FentaNYL Citrate 50 MCG/ML 2 ML Injection IV ONE (14:20)
[2025-02-03] MEDS ORDERED: Furosemide 10 MG / ML 2ML Vial IV SCH (15:00)
[2025-02-03] MEDS ORDERED: Albumin (Human) 25gm/100ml 100 ML IV SCH (16:00)
[2025-02-03 17:06] LABS: pH Blood Arterial 7.48 (7.35-7.45)
[2025-02-03 17:22] LABS: Source, Urine Foley catheter
[2025-02-03 17:34] LABS: BASOPHILS ABSOLUTE AUTO 0.02 K/mm3 (0.00-0.23); BASOPHILS PERCENT AUTO 0 % (0-2); Bilirubin, Urine Neg (Neg); Color, Urine Yellow (P-Yellow); EOSINOPHILS ABSOLUTE AUTO 0.12 K/mm3 (0.00-0.68); EOSINOPHILS PERCENT AUTO 1 % (0-6); Glucose Qualitative, Urine Neg (Neg); Hematocrit 33.2 % (37.0-53.0); Hemoglobin 11.2 g/dL (13.5-17.5); IMMATURE GRAN ABSOLUTE AUTO 0.05 K/mm3 (0.00-0.10); IMMATURE GRAN PERCENT AUTO 1 % (0-1); Ketones, Urine Neg (Neg); LYMPHOCYTES ABSOLUTE AUTO 1.52 K/mm3 (0.84-5.20); LYMPHOCYTES PERCENT AUTO 14 % (21-46); Leukocyte Esterase, Urine Neg (Neg); MONOCYTES ABSOLUTE AUTO 1.55 K/mm3 (0.16-1.47); MONOCYTES PERCENT AUTO 15 % (4-13); Mean Corpuscular HGB Conc 33.7 g/dL (31.5-36.5); Mean Corpuscular Volume 90 fL (80-100); NEUTROPHILS ABSOLUTE AUTO 7.37 K/mm3 (1.96-9.15); NEUTROPHILS PERCENT AUTO 69 % (41-73); NRBC ABSOLUTE 0.00 K/mm3 (0.00-0.02); NRBC Auto 0.0 /100 WBC (0.0-0.2); Platelet Count 231 K/mm3 (150-400); Protein, Urine Neg (Neg); RDW Coefficient Variation 13.1 % (11.7-14.2); RDW Standard Deviation 43.5 fL (35.1-46.3); Specific Gravity, Urine 1.010 (1.003-1.022); Urobilinogen, Urine 1+ (Normal)
[2025-02-03 17:43] LABS: White Blood Cells, Urine 0-2 /hpf (0-5)
[2025-02-03 17:46] LABS: Prothrombin Time Results 11.7 Sec (9.7-11.5)
--- NOTE | 2025-02-03 17:54 | NUR ---
END OF SHIFT NOTE: PT HAS REMAINED INTUBATED AND UNRESPONSIVE THIS SHIFT. RASS -5. ABSENT GAG, COUGH ONLY OBSERVED DURING BRONCH PROCEDURE THIS AFTERNOON. PUPILS ARE NOT REACTIVE TO LIGHT. CORNEAL REFLEX PRESENT. ON VENT, SETTINGS AC/VC 14/520/5/30% W/ SPO2 >90%. PT BREATHING OVER VENT T/O SHIFT. AFEBRILE W/ CORE TEMP PROBE IN PLACE. HR 70-90'S AT REST, 1 EVENT THIS AFTERNOON W/ HR UP TO 130-140'S; VERSED ADMINISTERED PER ORDERS W/ IMPROVEMENT. BP VIA ARTERIAL LINE STABLE W/ NICARDIPINE GTT TITRATED TO MAINTAIN SBP <180; SEE CC FLOWSHEET FOR TITRATIONS. REPEAT ECHO COMPLETED. LR @ 50ML/HR. BUTLER CATH IN PLACE DRAINING YELLOW URINE TO GRAVITY. TF AT 10ML/HR VIA OGT. Q2HR REPOSITIONING. CHG BATH COMPLETED. PT'S MOTHER & DAUGHTER AT BEDSIDE THIS EVENING MEETING W/ CLA & UPDATED ON PLAN OF CARE. NO OTHER NEEDS AT THIS TIME.
[2025-02-03 18:08] LABS: Alanine Aminotransfer (ALT/SGP 40.0 U/L (12-78); Albumin, Blood 3.3 g/dL (3.4-5.0); Albumin/Globulin Ratio 1.0 (0.8-1.8); Anion Gap 9.0 mmol/L (3-11); Aspartate Aminotrans (AST/SGOT 32.0 U/L (12-37); Bilirubin, Direct 0.3 mg/dL (0.0-0.3); Bilirubin, Indirect 0.3 mg/dL (0.1-0.7); Bilirubin, Total 0.6 mg/dL (0.1-1.0); Blood Urea Nitrogen 18.0 mg/dL (8-24); CO2, Blood 27.0 mmol/L (21-32); Calcium, Blood 8.9 mg/dL (8.5-10.1); Chloride, Blood 106.0 mmol/L (98-108); Creatinine, Blood 0.58 mg/dL (0.60-1.20); Globulin, Blood 3.3 g/dL (2.2-4.0); Glucose, Blood 120.0 mg/dL (70-99); Magnesium, Blood 1.9 mg/dL (1.6-2.4); Phosphorus, Blood 4.7 mg/dL (2.5-4.9); Potassium, Blood 3.5 mmol/L (3.5-5.5); Sodium, Blood 138.0 mmol/L (136-145); Total Protein, Blood 6.6 g/dL (6.4-8.2)
[2025-02-03] MEDS ORDERED: Potassium Chl 20MEQ/Water100ML 100 ML IV ONE (18:50)
[2025-02-03] MEDS ORDERED: Magnesium Sulf 2 GM/Water 50ML 50 ML IV ONE (18:55)
[2025-02-04 00:07] LABS: Magnesium, Blood 2.4 mg/dL (1.6-2.4); Potassium, Blood 3.7 mmol/L (3.5-5.5)
[2025-02-04 05:18] LABS: pH Blood Arterial 7.44 (7.35-7.45)
[2025-02-04 05:23] LABS: Source, Urine Foley catheter
[2025-02-04 05:37] LABS: BASOPHILS ABSOLUTE AUTO 0.03 K/mm3 (0.00-0.23); BASOPHILS PERCENT AUTO 0 % (0-2); EOSINOPHILS ABSOLUTE AUTO 0.16 K/mm3 (0.00-0.68); EOSINOPHILS PERCENT AUTO 2 % (0-6); Hematocrit 32.1 % (37.0-53.0); Hemoglobin 10.9 g/dL (13.5-17.5); IMMATURE GRAN ABSOLUTE AUTO 0.03 K/mm3 (0.00-0.10); IMMATURE GRAN PERCENT AUTO 0 % (0-1); LYMPHOCYTES ABSOLUTE AUTO 1.23 K/mm3 (0.84-5.20); LYMPHOCYTES PERCENT AUTO 13 % (21-46); MONOCYTES ABSOLUTE AUTO 1.41 K/mm3 (0.16-1.47); MONOCYTES PERCENT AUTO 14 % (4-13); Mean Corpuscular HGB Conc 34.0 g/dL (31.5-36.5); Mean Corpuscular Volume 90 fL (80-100); NEUTROPHILS ABSOLUTE AUTO 6.94 K/mm3 (1.96-9.15); NEUTROPHILS PERCENT AUTO 71 % (41-73); NRBC ABSOLUTE 0.00 K/mm3 (0.00-0.02); NRBC Auto 0.0 /100 WBC (0.0-0.2); Platelet Count 229 K/mm3 (150-400); RDW Coefficient Variation 13.1 % (11.7-14.2); RDW Standard Deviation 43.5 fL (35.1-46.3)
[2025-02-04 05:45] LABS: Bilirubin, Urine Neg (Neg); Color, Urine Yellow (P-Yellow); Glucose Qualitative, Urine Neg (Neg); Ketones, Urine Neg (Neg); Leukocyte Esterase, Urine Neg (Neg); Protein, Urine 1+ (Neg); Specific Gravity, Urine 1.020 (1.003-1.022); Urobilinogen, Urine 1+ (Normal)
[2025-02-04 05:49] LABS: Prothrombin Time Results 11.8 Sec (9.7-11.5)
[2025-02-04 06:04] LABS: Red Blood Cells, Urine 0-2 /hpf (0-2); White Blood Cells, Urine 0-2 /hpf (0-5)
--- NOTE | 2025-02-04 06:10 | NUR ---
SHIFT SUMMARY NO ACUTE CHANGES THIS SHIFT, REMAINS INTUBATED AND UNRESPONSIVE, NO GAG OR COUGH REFLEX NOTED, MINIMAL CORNEAL REFLEX NOTED TO LEFT EYE WITH DOLLY PUPILS REMAINING NONRESPONSIVE TO LIGHT, SR 70-90s WITH NOTED ST 100-115 WITH SUCTION AND REPOSITIONING, SBP 140-160s ON NICARDIPINE GTT PER EMAR, BUTLER PATENT AND DRAINING CLEAR YELLOW URINE TO GRAVITY WITH NOTED 75-175 ML/HR THIS SHIFT, TMAX 99.1F, NO VENT CHANGES MADE AND PT TOLERATING VENT, SPO2 100% ON FIO2 30%, TURNED AND REPOSITIONED EVERY 2 HOURS, HOB UP 40 DEGREES, SIDE RAILS UP X3 BED IN LOW POSITION
[2025-02-04 06:13] LABS: Alanine Aminotransfer (ALT/SGP 52.0 U/L (12-78); Albumin, Blood 3.4 g/dL (3.4-5.0); Albumin/Globulin Ratio 1.0 (0.8-1.8); Anion Gap 8.0 mmol/L (3-11); Aspartate Aminotrans (AST/SGOT 38.0 U/L (12-37); Bilirubin, Direct 0.3 mg/dL (0.0-0.3); Bilirubin, Indirect 0.4 mg/dL (0.1-0.7); Bilirubin, Total 0.7 mg/dL (0.1-1.0); Blood Urea Nitrogen 18.0 mg/dL (8-24); CO2, Blood 27.0 mmol/L (21-32); Calcium, Blood 8.7 mg/dL (8.5-10.1); Chloride, Blood 107.0 mmol/L (98-108); Creatinine, Blood 0.6 mg/dL (0.60-1.20); Globulin, Blood 3.5 g/dL (2.2-4.0); Glucose, Blood 119.0 mg/dL (70-99); Magnesium, Blood 2.1 mg/dL (1.6-2.4); Phosphorus, Blood 3.8 mg/dL (2.5-4.9); Potassium, Blood 3.7 mmol/L (3.5-5.5); Sodium, Blood 138.0 mmol/L (136-145); Total Protein, Blood 6.9 g/dL (6.4-8.2)
[2025-02-04 07:32] VITALS: BP 139/75
[2025-02-04 09:40] LABS: pH Blood Arterial 7.45 (7.35-7.45)
--- NOTE | 2025-02-04 11:00 | NUR ---
AM NOTE: THIS RN ASSUMED CARE OF PT AT APPROX 0700, BEDSIDE REPORT TAKEN. PT INTUBATED, UNRESPONSIVE. PUPILS EQUAL, 5MM, NOT REACTIVE TO LIGHT. CORNEAL REFLEX PRESENT BILATERALLY. PT W/ GAG THIS AM DURING ORAL CARE/SUCTIONING. MINIMAL WITHDRAWAL REFLEX NOTED W/ PAINFUL STIMULI (NAILBED PRESSURE, STERNAL RUB) AT START OF SHIFT; REFLEX NO LONGER NOTED LATER IN AM. VSS. HR 70-90'S, UP TO 110'S W/ MOVEMENT. SINUS RHYTHM ON MONITOR. SBP 140-160'S, NICARDIPINE GTT INFUSING PER ORDERS, SEE CC FLOWSHEET. SPO2 >90% ON VENT, SETTINGS 14/520/5/30%. CORE TEMP <97.0 AT START OF SHIFT, TEMPORAL READING >100.0 W/ PT SKIN APPEARING RED/WARM. CORE TEMP VERIFIED VIA TEMP BUTLER, RECTAL TEMP & ESOPHAGEAL TEMP. BLANKETS REAPPLIED, TEMP >97.0 AT 0945. BUTLER CATH IN PLACE, PATENT & DRAINING YELLOW URINE TO GRAVITY. NO BM'S, BT HYPOACTIVE. TF INFUSING AT 10ML/HR VIA OGT. ART LINE TO DIMITRY WNL. PICC TO HANNY PATENT & INFUSING; DRESSING CHANGED THIS SHIFT. LR INFUSING AT 50ML/HR. PT'S MOM TO BEDSIDE BRIEFLY THIS AM, PLANS TO RETURN W/ PT'S DAUGHTER LATER IN THE AFTERNOON.
--- NOTE | 2025-02-04 11:56 | NUR ---
"Spiritual Care | Family support. Visited with Pts. mom outside of the Pts. room regarding family and plans for the Pt. This travel freight and passenger agent updated the Pts. mom about our support plan. Palliative Care nurse joined the conversation. Pts. mom verbalized gratitude for the spiritual care support."
--- NOTE | 2025-02-04 14:47 | NUR ---
SUPPORTIVE VISIT WITH PT'S MOM, MANPREET. THERAPUTIC LISTENING PROVIDED. SHE SHARED PICTURES OF HOSEA RIDING HIS FAVORITE HORSE AND PICTURES OF HE AND HIS DTR VAISHALI TOGETHER. MANPREET EXPRESSES DESIRE TO OBTAIN PICTURES OF HOSEA'S TATTOOS. SHE IS UNSURE IF HER FRIEND WILL BE ABL TO TAKE PHOTOS SHE MAY BE OUT OF TOWN. PERMISSION OBTAIN FROM MANPREET TO REACH OUT TO A LOCAL DIGITAL MARKETING ANALYST. THIS PC RN WILL MAKE CALLS THIS AFTERNOON.
[2025-02-04 15:59] LABS: pH Blood Arterial 7.45 (7.35-7.45)
[2025-02-04] MEDS ORDERED: Midazolam HCl 1MG / ML 2ML Vial ONE (16:04)
[2025-02-04] MEDS ORDERED: Midazolam HCl 1MG / ML 2ML Vial IV ONE (16:10)
--- NOTE | 2025-02-04 16:23 | NUR ---
SEIZURE ACTIVITY THIS RN AT PT'S BEDSIDE PROVIDING ORAL CARE. AT APPROX 1557 PT'S HR INCREASING UP TO 140'S. PT W/ MYOCLONIC MOVEMENT OBSERVED. DR. JUNIOR TO BEDSIDE. 2MG VERSED ADMINISTERED PER ORDERS W/O IMPROVEMENT IN SYMPTOMS. VERBAL ORDER FROM DR. JUNIOR TO ADMINISTER ADDITIONAL 4MG VERSED. MYOCLONIC MOVEMENT BEGAN TO IMPROVE FOLLOWING 4MG DOSE OF VERSED, HR DECREASED TO 90-100'S. PUPILS REMAINED FIXED, ROUND, 5MM T/O EVENT. BILAT UPPER & LOWER EXTREMITIES RIGID DURING EVENT, BECAME FLACCID FOLLOWING 4MG DOSE OF VERSED. AT THIS TIME, HR 92, ART LINE BP 129/65, MAP 83, SPO2 100% ON VENT, RR 17, CORE TEMP 98.4. VENT SETTINGS UNCHANGED; 14/520/5/30%.
[2025-02-04 16:24] LABS: Source, Urine Foley catheter
[2025-02-04 16:44] LABS: Bilirubin, Urine Neg (Neg); Color, Urine Yellow (P-Yellow); Glucose Qualitative, Urine Neg (Neg); Ketones, Urine Neg (Neg); Leukocyte Esterase, Urine Neg (Neg); Protein, Urine Neg (Neg); Specific Gravity, Urine 1.020 (1.003-1.022); Urobilinogen, Urine NORM (Normal)
[2025-02-04 18:17] LABS: BASOPHILS ABSOLUTE AUTO 0.03 K/mm3 (0.00-0.23); BASOPHILS PERCENT AUTO 0 % (0-2); EOSINOPHILS ABSOLUTE AUTO 0.18 K/mm3 (0.00-0.68); EOSINOPHILS PERCENT AUTO 2 % (0-6); Hematocrit 33.3 % (37.0-53.0); Hemoglobin 11.2 g/dL (13.5-17.5); IMMATURE GRAN ABSOLUTE AUTO 0.04 K/mm3 (0.00-0.10); IMMATURE GRAN PERCENT AUTO 0 % (0-1); LYMPHOCYTES ABSOLUTE AUTO 1.18 K/mm3 (0.84-5.20); LYMPHOCYTES PERCENT AUTO 12 % (21-46); MONOCYTES ABSOLUTE AUTO 1.36 K/mm3 (0.16-1.47); MONOCYTES PERCENT AUTO 14 % (4-13); Mean Corpuscular HGB Conc 33.6 g/dL (31.5-36.5); Mean Corpuscular Volume 92 fL (80-100); NEUTROPHILS ABSOLUTE AUTO 7.00 K/mm3 (1.96-9.15); NEUTROPHILS PERCENT AUTO 72 % (41-73); NRBC ABSOLUTE 0.00 K/mm3 (0.00-0.02); NRBC Auto 0.0 /100 WBC (0.0-0.2); Platelet Count 225 K/mm3 (150-400); RDW Coefficient Variation 13.2 % (11.7-14.2); RDW Standard Deviation 44.6 fL (35.1-46.3)
--- NOTE | 2025-02-04 18:22 | NUR ---
END OF SHIFT NOTE: SEE PREVIOUS NOTES FOR SHIFT EVENTS. PT REMAINS INTUBATED & UNRESPONSIVE. RASS -5. FOLLOWING MYOCLONIC ACTIVITY THIS AFTERNOON, PT HAS NOT HAD ANY ACUTE EVENTS. VITAL SIGNS HAVE REMAINED STABLE FOLLOWING THE EVENT. HR 80-100'S, SINUS RHYTHM ON MONITOR. SBP 130-140'S, MAP >65 ON NICARDIPINE GTT @ 5MG/HR. SPO2 >95% ON VENT; SETTINGS AC/VC 14/520/14/30%. RR >14. T-MAX 99.5, ICE PACKS APPLIED; CORE TEMP AT THIS TIME IS 97.9. SKIN IS COOL. TF CONTINUES TO INFUSE AT 10ML/HR. LR @ 50ML/HR. PICC TO HANNY, ART LINE TO DIMITRY. PIV TO RAC. BUTLER CATH IN PLACE, URINE CULTURE SENT PER CLA REQUEST. Q2HR REPOSITIONING, Q4HR ORAL CARE. ANTICIPATING FAMILY ARRIVAL THIS EVENING. WILL REPORT TO ONCOMING RN.
[2025-02-04 18:48] LABS: Prothrombin Time Results 11.9 Sec (9.7-11.5)
[2025-02-04 18:50] LABS: Alanine Aminotransfer (ALT/SGP 54.0 U/L (12-78); Albumin, Blood 3.1 g/dL (3.4-5.0); Albumin/Globulin Ratio 0.9 (0.8-1.8); Anion Gap 7.0 mmol/L (3-11); Aspartate Aminotrans (AST/SGOT 37.0 U/L (12-37); Bilirubin, Direct 0.2 mg/dL (0.0-0.3); Bilirubin, Indirect 0.4 mg/dL (0.1-0.7); Bilirubin, Total 0.6 mg/dL (0.1-1.0); Blood Urea Nitrogen 23.0 mg/dL (8-24); CO2, Blood 26.0 mmol/L (21-32); Calcium, Blood 9.1 mg/dL (8.5-10.1); Chloride, Blood 107.0 mmol/L (98-108); Creatinine, Blood 0.6 mg/dL (0.60-1.20); Globulin, Blood 3.6 g/dL (2.2-4.0); Glucose, Blood 111.0 mg/dL (70-99); Magnesium, Blood 1.9 mg/dL (1.6-2.4); Phosphorus, Blood 4.0 mg/dL (2.5-4.9); Potassium, Blood 3.7 mmol/L (3.5-5.5); Sodium, Blood 136.0 mmol/L (136-145); Total Protein, Blood 6.7 g/dL (6.4-8.2)
[2025-02-04 22:28] VITALS: BP 128/65
[2025-02-05] MEDS ORDERED: Midazolam HCl 1MG / ML 2ML Vial IV PRN ×2 (02:05→02:10)
[2025-02-05 05:14] LABS: pH Blood Arterial 7.47 (7.35-7.45)
[2025-02-05 05:31] LABS: BASOPHILS ABSOLUTE AUTO 0.02 K/mm3 (0.00-0.23); BASOPHILS PERCENT AUTO 0 % (0-2); EOSINOPHILS ABSOLUTE AUTO 0.24 K/mm3 (0.00-0.68); EOSINOPHILS PERCENT AUTO 3 % (0-6); Hematocrit 33.6 % (37.0-53.0); Hemoglobin 11.3 g/dL (13.5-17.5); IMMATURE GRAN ABSOLUTE AUTO 0.03 K/mm3 (0.00-0.10); IMMATURE GRAN PERCENT AUTO 0 % (0-1); LYMPHOCYTES ABSOLUTE AUTO 1.49 K/mm3 (0.84-5.20); LYMPHOCYTES PERCENT AUTO 15 % (21-46); MONOCYTES ABSOLUTE AUTO 1.31 K/mm3 (0.16-1.47); MONOCYTES PERCENT AUTO 13 % (4-13); Mean Corpuscular HGB Conc 33.6 g/dL (31.5-36.5); Mean Corpuscular Volume 91 fL (80-100); NEUTROPHILS ABSOLUTE AUTO 6.68 K/mm3 (1.96-9.15); NEUTROPHILS PERCENT AUTO 68 % (41-73); NRBC ABSOLUTE 0.00 K/mm3 (0.00-0.02); NRBC Auto 0.0 /100 WBC (0.0-0.2); Platelet Count 247 K/mm3 (150-400); RDW Coefficient Variation 13.2 % (11.7-14.2); RDW Standard Deviation 43.6 fL (35.1-46.3)
[2025-02-05 05:33] LABS: Source, Urine Foley catheter
[2025-02-05 05:37] LABS: Bilirubin, Urine Neg (Neg); Color, Urine Yellow (P-Yellow); Glucose Qualitative, Urine Neg (Neg); Ketones, Urine Neg (Neg); Leukocyte Esterase, Urine Neg (Neg); Protein, Urine 1+ (Neg); Specific Gravity, Urine 1.015 (1.003-1.022); Urobilinogen, Urine NORM (Normal)
[2025-02-05 05:48] LABS: Prothrombin Time Results 11.9 Sec (9.7-11.5)
[2025-02-05 06:28] LABS: Alanine Aminotransfer (ALT/SGP 59.0 U/L (12-78); Albumin, Blood 3.3 g/dL (3.4-5.0); Albumin/Globulin Ratio 0.9 (0.8-1.8); Anion Gap 8.0 mmol/L (3-11); Aspartate Aminotrans (AST/SGOT 44.0 U/L (12-37); Bilirubin, Direct 0.2 mg/dL (0.0-0.3); Bilirubin, Indirect 0.3 mg/dL (0.1-0.7); Bilirubin, Total 0.5 mg/dL (0.1-1.0); Blood Urea Nitrogen 24.0 mg/dL (8-24); CO2, Blood 27.0 mmol/L (21-32); Calcium, Blood 9.0 mg/dL (8.5-10.1); Chloride, Blood 108.0 mmol/L (98-108); Creatinine, Blood 0.67 mg/dL (0.60-1.20); Globulin, Blood 3.5 g/dL (2.2-4.0); Glucose, Blood 111.0 mg/dL (70-99); Magnesium, Blood 2.1 mg/dL (1.6-2.4); Phosphorus, Blood 3.9 mg/dL (2.5-4.9); Potassium, Blood 3.9 mmol/L (3.5-5.5); Sodium, Blood 139.0 mmol/L (136-145); Total Protein, Blood 6.8 g/dL (6.4-8.2)
--- NOTE | 2025-02-05 06:29 | NUR ---
SHIFT SUMMARY PT HAS TOLERATED SHIFT WITH NO SIGNIFICANT EVENTS OVERNIGHT. PT HAS HAD GAG AND COUGH REFLEX THROUGHOUT SHIFT, NO REACTION TO PAINFUL STIMULI. PTs OUTPUT HAS REMAINED STEADY. PT HAS HAD SEIZURE LIKE ACTIVITY THAT HAS RESPONDED WELL TO PRN VERSED ORDERED. NICARDIPINE DRIP WAS TITRATED DOWN FROM 5MG/HR TO 2.5MG/HR. WILL CONTINUE TO MONITOR UNTIL REPORT PASSED TO DAY SHIFT TEAM.
[2025-02-05 06:40] LABS: Red Blood Cells, Urine 25-50 /hpf (0-2); White Blood Cells, Urine 0-2 /hpf (0-5)
[2025-02-05 06:41] LABS: Yeast/Fungi Urine Not Seen /hpf
[2025-02-05] MEDS ORDERED: Vancomycin HCL 2,500 MG in NS 500 ML IV ONE (10:30)
[2025-02-05] MEDS ORDERED: Vancomycin (Pharmacy Consult) IV SCH (11:00)
[2025-02-05 17:13] LABS: pH Blood Arterial 7.46 (7.35-7.45)
[2025-02-05 17:16] LABS: BASOPHILS ABSOLUTE AUTO 0.03 K/mm3 (0.00-0.23); BASOPHILS PERCENT AUTO 0 % (0-2); EOSINOPHILS ABSOLUTE AUTO 0.18 K/mm3 (0.00-0.68); EOSINOPHILS PERCENT AUTO 2 % (0-6); Hematocrit 34.8 % (37.0-53.0); Hemoglobin 11.8 g/dL (13.5-17.5); IMMATURE GRAN ABSOLUTE AUTO 0.04 K/mm3 (0.00-0.10); IMMATURE GRAN PERCENT AUTO 0 % (0-1); LYMPHOCYTES ABSOLUTE AUTO 1.38 K/mm3 (0.84-5.20); LYMPHOCYTES PERCENT AUTO 12 % (21-46); MONOCYTES ABSOLUTE AUTO 1.48 K/mm3 (0.16-1.47); MONOCYTES PERCENT AUTO 13 % (4-13); Mean Corpuscular HGB Conc 33.9 g/dL (31.5-36.5); Mean Corpuscular Volume 91 fL (80-100); NEUTROPHILS ABSOLUTE AUTO 8.40 K/mm3 (1.96-9.15); NEUTROPHILS PERCENT AUTO 73 % (41-73); NRBC ABSOLUTE 0.00 K/mm3 (0.00-0.02); NRBC Auto 0.0 /100 WBC (0.0-0.2); Platelet Count 257 K/mm3 (150-400); RDW Coefficient Variation 13.2 % (11.7-14.2); RDW Standard Deviation 44.2 fL (35.1-46.3)
[2025-02-05 17:17] LABS: Source, Urine Foley catheter
--- NOTE | 2025-02-05 17:17 | NUR ---
Summary. Shift uneventful. Pt condition unchanged, fluids remain at same rates. CLA following, see chart for details. Family updated at bedside this shift. Report given to RN assuming care.
[2025-02-05 17:35] LABS: Prothrombin Time Results 12.1 Sec (9.7-11.5)
[2025-02-05 17:35] LABS: Bilirubin, Urine Neg (Neg); Color, Urine Yellow (P-Yellow); Glucose Qualitative, Urine Neg (Neg); Ketones, Urine Neg (Neg); Leukocyte Esterase, Urine Neg (Neg); Protein, Urine 1+ (Neg); Specific Gravity, Urine 1.015 (1.003-1.022); Urobilinogen, Urine NORM (Normal)
[2025-02-05 17:50] LABS: White Blood Cells, Urine 0-2 /hpf (0-5)
[2025-02-05 18:09] LABS: Magnesium, Blood 1.9 mg/dL (1.6-2.4)
[2025-02-05 18:10] LABS: Alanine Aminotransfer (ALT/SGP 67.0 U/L (12-78); Albumin, Blood 3.2 g/dL (3.4-5.0); Albumin/Globulin Ratio 0.8 (0.8-1.8); Anion Gap 3.0 mmol/L (3-11); Aspartate Aminotrans (AST/SGOT 58.0 U/L (12-37); Bilirubin, Direct 0.2 mg/dL (0.0-0.3); Bilirubin, Indirect 0.3 mg/dL (0.1-0.7); Bilirubin, Total 0.5 mg/dL (0.1-1.0); Blood Urea Nitrogen 25.0 mg/dL (8-24); CO2, Blood 27.0 mmol/L (21-32); Calcium, Blood 9.1 mg/dL (8.5-10.1); Chloride, Blood 109.0 mmol/L (98-108); Creatinine, Blood 0.67 mg/dL (0.60-1.20); Globulin, Blood 3.8 g/dL (2.2-4.0); Glucose, Blood 125.0 mg/dL (70-99); Phosphorus, Blood 3.9 mg/dL (2.5-4.9); Potassium, Blood 3.7 mmol/L (3.5-5.5); Sodium, Blood 135.0 mmol/L (136-145); Total Protein, Blood 7.0 g/dL (6.4-8.2)
[2025-02-06 05:32] LABS: BASOPHILS ABSOLUTE AUTO 0.03 K/mm3 (0.00-0.23); BASOPHILS PERCENT AUTO 0 % (0-2); EOSINOPHILS ABSOLUTE AUTO 0.18 K/mm3 (0.00-0.68); EOSINOPHILS PERCENT AUTO 2 % (0-6); Hematocrit 34.7 % (37.0-53.0); Hemoglobin 11.7 g/dL (13.5-17.5); IMMATURE GRAN ABSOLUTE AUTO 0.05 K/mm3 (0.00-0.10); IMMATURE GRAN PERCENT AUTO 0 % (0-1); LYMPHOCYTES ABSOLUTE AUTO 1.45 K/mm3 (0.84-5.20); LYMPHOCYTES PERCENT AUTO 12 % (21-46); MONOCYTES ABSOLUTE AUTO 1.37 K/mm3 (0.16-1.47); MONOCYTES PERCENT AUTO 11 % (4-13); Mean Corpuscular HGB Conc 33.7 g/dL (31.5-36.5); Mean Corpuscular Volume 92 fL (80-100); NEUTROPHILS ABSOLUTE AUTO 9.16 K/mm3 (1.96-9.15); NEUTROPHILS PERCENT AUTO 75 % (41-73); NRBC ABSOLUTE 0.00 K/mm3 (0.00-0.02); NRBC Auto 0.0 /100 WBC (0.0-0.2); Platelet Count 280 K/mm3 (150-400); RDW Coefficient Variation 13.1 % (11.7-14.2); RDW Standard Deviation 43.9 fL (35.1-46.3)
[2025-02-06 05:44] LABS: pH Blood Arterial 7.45 (7.35-7.45)
[2025-02-06 05:52] LABS: Prothrombin Time Results 12.2 Sec (9.7-11.5)
[2025-02-06 05:53] LABS: Alanine Aminotransfer (ALT/SGP 67.0 U/L (12-78); Albumin, Blood 3.3 g/dL (3.4-5.0); Albumin/Globulin Ratio 0.9 (0.8-1.8); Anion Gap 8.0 mmol/L (3-11); Aspartate Aminotrans (AST/SGOT 59.0 U/L (12-37); Bilirubin, Direct 0.2 mg/dL (0.0-0.3); Bilirubin, Indirect 0.2 mg/dL (0.1-0.7); Bilirubin, Total 0.4 mg/dL (0.1-1.0); Blood Urea Nitrogen 24.0 mg/dL (8-24); CO2, Blood 28.0 mmol/L (21-32); Calcium, Blood 9.0 mg/dL (8.5-10.1); Chloride, Blood 107.0 mmol/L (98-108); Creatinine, Blood 0.75 mg/dL (0.60-1.20); Globulin, Blood 3.8 g/dL (2.2-4.0); Glucose, Blood 125.0 mg/dL (70-99); Magnesium, Blood 2.0 mg/dL (1.6-2.4); Phosphorus, Blood 4.0 mg/dL (2.5-4.9); Potassium, Blood 4.1 mmol/L (3.5-5.5); Sodium, Blood 139.0 mmol/L (136-145); Total Protein, Blood 7.1 g/dL (6.4-8.2)
--- NOTE | 2025-02-06 06:01 | NUR ---
SHIFT SUMMARY PT REMAINS UNCHANGED THROUGH THE NIGHT. UNRESPONSIVE, NO PURPOSEFUL MOVEMENTS. SEE ASSESSMENT FOR DETAILS. TOLERATING VENT, SATS > 94%, L/S CLEAR. ON CARE NURSE RN, HR 70-90'S, BP STABLE. TRICKLE FEEDS INFUSING TO OGT. BUTLER PATENT, GOOD UOP NOTED. NO BM THIS SHIFT. UA SENT TO LAB. A-LINE PATENT. CHG BATH DONE AND LINENS CHANGED. TMAX 100.3. NO ACUTE EVENTS OVERNIGHT.
[2025-02-06 12:00] LABS: Source, Urine Foley catheter
[2025-02-06 12:10] LABS: Bilirubin, Urine Neg (Neg); Color, Urine Yellow (P-Yellow); Glucose Qualitative, Urine Neg (Neg); Ketones, Urine Neg (Neg); Leukocyte Esterase, Urine Neg (Neg); Protein, Urine 1+ (Neg); Specific Gravity, Urine 1.020 (1.003-1.022); Urobilinogen, Urine NORM (Normal)
[2025-02-06 12:20] LABS: Red Blood Cells, Urine 0-2 /hpf (0-2); White Blood Cells, Urine 0-2 /hpf (0-5)
[2025-02-06] MEDS ORDERED: NS 1,000 ML IV ONE (13:44)
[2025-02-06] MEDS ORDERED: Heparin Sodium 1000 Units/ML 10ML MDV ONE (13:44)
[2025-02-06] MEDS ORDERED: NS 250 ML IV ONE (13:44)
[2025-02-06] MEDS ORDERED: Nitroglycerin 2 MG/20 ML BTL ONE (13:44)
[2025-02-06] MEDS ORDERED: Verapamil HCL 2.5 MG/ML 2ML Injection ONE (13:44)
--- NOTE | 2025-02-06 14:43 | NUR ---
PT TO DIRECTOR TRANSLATION.... PT WAS TAKEN TO THE DIRECTOR TRANSLATION AT [id number]
[2025-02-06 17:06] LABS: BASOPHILS ABSOLUTE AUTO 0.04 K/mm3 (0.00-0.23); BASOPHILS PERCENT AUTO 0 % (0-2); EOSINOPHILS ABSOLUTE AUTO 0.26 K/mm3 (0.00-0.68); EOSINOPHILS PERCENT AUTO 2 % (0-6); Hematocrit 36.6 % (37.0-53.0); Hemoglobin 12.4 g/dL (13.5-17.5); IMMATURE GRAN ABSOLUTE AUTO 0.06 K/mm3 (0.00-0.10); IMMATURE GRAN PERCENT AUTO 0 % (0-1); LYMPHOCYTES ABSOLUTE AUTO 1.58 K/mm3 (0.84-5.20); LYMPHOCYTES PERCENT AUTO 11 % (21-46); MONOCYTES ABSOLUTE AUTO 1.51 K/mm3 (0.16-1.47); MONOCYTES PERCENT AUTO 11 % (4-13); Mean Corpuscular HGB Conc 33.9 g/dL (31.5-36.5); Mean Corpuscular Volume 90 fL (80-100); NEUTROPHILS ABSOLUTE AUTO 10.92 K/mm3 (1.96-9.15); NEUTROPHILS PERCENT AUTO 76 % (41-73); NRBC ABSOLUTE 0.00 K/mm3 (0.00-0.02); NRBC Auto 0.0 /100 WBC (0.0-0.2); Platelet Count 304 K/mm3 (150-400); RDW Coefficient Variation 13.0 % (11.7-14.2); RDW Standard Deviation 42.9 fL (35.1-46.3)
[2025-02-06 17:10] LABS: pH Blood Arterial 7.43 (7.35-7.45)
[2025-02-06 17:23] LABS: Prothrombin Time Results 12.8 Sec (9.7-11.5)
[2025-02-06 17:33] LABS: Alanine Aminotransfer (ALT/SGP 70.0 U/L (12-78); Albumin, Blood 3.4 g/dL (3.4-5.0); Albumin/Globulin Ratio 0.8 (0.8-1.8); Anion Gap 7.0 mmol/L (3-11); Aspartate Aminotrans (AST/SGOT 57.0 U/L (12-37); Bilirubin, Direct 0.2 mg/dL (0.0-0.3); Bilirubin, Indirect 0.4 mg/dL (0.1-0.7); Bilirubin, Total 0.6 mg/dL (0.1-1.0); Blood Urea Nitrogen 23.0 mg/dL (8-24); CO2, Blood 25.0 mmol/L (21-32); Calcium, Blood 9.4 mg/dL (8.5-10.1); Chloride, Blood 107.0 mmol/L (98-108); Creatinine, Blood 0.58 mg/dL (0.60-1.20); Globulin, Blood 4.1 g/dL (2.2-4.0); Glucose, Blood 128.0 mg/dL (70-99); Magnesium, Blood 1.9 mg/dL (1.6-2.4); Phosphorus, Blood 4.0 mg/dL (2.5-4.9); Potassium, Blood 3.8 mmol/L (3.5-5.5); Sodium, Blood 135.0 mmol/L (136-145); Total Protein, Blood 7.5 g/dL (6.4-8.2)
--- NOTE | 2025-02-06 17:33 | NUR ---
"Spiritual Care | Donor Team Update Met with the Fashion Adviser to address the Pts. status. COnfirmed the plan is still for Sunday. Communicated that [facility] [employer] Lead Lawrence Norman would be the contact for a Sunday Donor Walk."
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
[2025-02-06 18:31] LABS: Vancomycin, Trough 15.3 ug/mL (5.0-10.0)
[2025-02-06 19:16] LABS: Source, Urine Foley catheter
[2025-02-06 19:28] LABS: Bilirubin, Urine Neg (Neg); Color, Urine Yellow (P-Yellow); Glucose Qualitative, Urine Neg (Neg); Ketones, Urine Neg (Neg); Leukocyte Esterase, Urine Neg (Neg); Protein, Urine 1+ (Neg); Specific Gravity, Urine 1.010 (1.003-1.022); Urobilinogen, Urine NORM (Normal)
[2025-02-06 20:14] LABS: White Blood Cells, Urine 0-2 /hpf (0-5)
[2025-02-06 21:14] LABS: pH Blood Arterial 7.44 (7.35-7.45)
[2025-02-07 05:26] LABS: Source, Urine Foley catheter
[2025-02-07 05:30] LABS: BASOPHILS ABSOLUTE AUTO 0.02 K/mm3 (0.00-0.23); BASOPHILS PERCENT AUTO 0 % (0-2); EOSINOPHILS ABSOLUTE AUTO 0.22 K/mm3 (0.00-0.68); EOSINOPHILS PERCENT AUTO 2 % (0-6); Hematocrit 36.2 % (37.0-53.0); Hemoglobin 12.2 g/dL (13.5-17.5); IMMATURE GRAN ABSOLUTE AUTO 0.04 K/mm3 (0.00-0.10); IMMATURE GRAN PERCENT AUTO 0 % (0-1); LYMPHOCYTES ABSOLUTE AUTO 1.28 K/mm3 (0.84-5.20); LYMPHOCYTES PERCENT AUTO 10 % (21-46); MONOCYTES ABSOLUTE AUTO 1.29 K/mm3 (0.16-1.47); MONOCYTES PERCENT AUTO 10 % (4-13); Mean Corpuscular HGB Conc 33.7 g/dL (31.5-36.5); Mean Corpuscular Volume 93 fL (80-100); NEUTROPHILS ABSOLUTE AUTO 9.93 K/mm3 (1.96-9.15); NEUTROPHILS PERCENT AUTO 78 % (41-73); NRBC ABSOLUTE 0.00 K/mm3 (0.00-0.02); NRBC Auto 0.0 /100 WBC (0.0-0.2); Platelet Count 270 K/mm3 (150-400); RDW Coefficient Variation 13.0 % (11.7-14.2); RDW Standard Deviation 43.8 fL (35.1-46.3)
[2025-02-07 05:45] LABS: Bilirubin, Urine Neg (Neg); Color, Urine Yellow (P-Yellow); Glucose Qualitative, Urine Neg (Neg); Ketones, Urine Neg (Neg); Leukocyte Esterase, Urine Neg (Neg); Protein, Urine 2+ (Neg); Specific Gravity, Urine 1.020 (1.003-1.022); Urobilinogen, Urine 1+ (Normal)
[2025-02-07 05:46] LABS: Prothrombin Time Results 12.4 Sec (9.7-11.5)
[2025-02-07 05:50] LABS: Magnesium, Blood 2.1 mg/dL (1.6-2.4)
[2025-02-07 05:51] LABS: Alanine Aminotransfer (ALT/SGP 69.0 U/L (12-78); Albumin, Blood 3.4 g/dL (3.4-5.0); Albumin/Globulin Ratio 0.8 (0.8-1.8); Anion Gap 8.0 mmol/L (3-11); Aspartate Aminotrans (AST/SGOT 50.0 U/L (12-37); Bilirubin, Direct 0.2 mg/dL (0.0-0.3); Bilirubin, Indirect 0.3 mg/dL (0.1-0.7); Bilirubin, Total 0.5 mg/dL (0.1-1.0); Blood Urea Nitrogen 25.0 mg/dL (8-24); CO2, Blood 27.0 mmol/L (21-32); Calcium, Blood 9.2 mg/dL (8.5-10.1); Chloride, Blood 106.0 mmol/L (98-108); Creatinine, Blood 0.7 mg/dL (0.60-1.20); Globulin, Blood 4.2 g/dL (2.2-4.0); Glucose, Blood 137.0 mg/dL (70-99); Phosphorus, Blood 3.5 mg/dL (2.5-4.9); Potassium, Blood 3.9 mmol/L (3.5-5.5); Sodium, Blood 137.0 mmol/L (136-145); Total Protein, Blood 7.6 g/dL (6.4-8.2)
[2025-02-07 05:58] LABS: Red Blood Cells, Urine 0-2 /hpf (0-2); White Blood Cells, Urine 0-2 /hpf (0-5)
--- NOTE | 2025-02-07 06:29 | NUR ---
SHIFT SUMMARY PT'S MOTHER VISITED LAST NIGHT BEFORE GOING OUT OF TOWN FOR WEEKEND. UPDATED WITH LATEST INFO REGARDING ORGAN DONATION/PROCUREMENT PLANS. SHE VERBALIZES UNDERSTANDING. PT REMAINED STABLE T/O NIGHT, NO CHANGES IN NEURO STATUS. VSS. ORAL SECRETIONS AND ETT SECRETIONS INCREASED T/O NIGHT REQUIRING MORE FREQUENT SUCTIONING. PT COUGHS AT TIMES WITH REPOSITIONING AND SXN, BUT NOT OPENING EYES OR RESPONDING TO PAIN, NO FOLLOWING COMMANDS. SEE ASSESSMENTS FOR FURTHER DETAILS. WILL UPDATE DAY RN WITH ALL OUTSTANDING ISSUES AND PROBLEMS TO DATE.
[2025-02-07 06:53] LABS: pH Blood Arterial 7.44 (7.35-7.45)
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
[2025-02-07 11:28] LABS: pH Blood Arterial 7.43 (7.35-7.45)
[2025-02-07 17:25] LABS: pH Blood Arterial 7.43 (7.35-7.45)
[2025-02-07 17:27] LABS: pH Blood Arterial 7.44 (7.35-7.45)
[2025-02-07 17:30] LABS: BASOPHILS ABSOLUTE AUTO 0.03 K/mm3 (0.00-0.23); BASOPHILS PERCENT AUTO 0 % (0-2); EOSINOPHILS ABSOLUTE AUTO 0.29 K/mm3 (0.00-0.68); EOSINOPHILS PERCENT AUTO 2 % (0-6); Hematocrit 36.4 % (37.0-53.0); Hemoglobin 12.4 g/dL (13.5-17.5); IMMATURE GRAN ABSOLUTE AUTO 0.05 K/mm3 (0.00-0.10); IMMATURE GRAN PERCENT AUTO 0 % (0-1); LYMPHOCYTES ABSOLUTE AUTO 1.49 K/mm3 (0.84-5.20); LYMPHOCYTES PERCENT AUTO 11 % (21-46); MONOCYTES ABSOLUTE AUTO 1.30 K/mm3 (0.16-1.47); MONOCYTES PERCENT AUTO 10 % (4-13); Mean Corpuscular HGB Conc 34.1 g/dL (31.5-36.5); Mean Corpuscular Volume 92 fL (80-100); NEUTROPHILS ABSOLUTE AUTO 10.01 K/mm3 (1.96-9.15); NEUTROPHILS PERCENT AUTO 76 % (41-73); NRBC ABSOLUTE 0.00 K/mm3 (0.00-0.02); NRBC Auto 0.0 /100 WBC (0.0-0.2); Platelet Count 305 K/mm3 (150-400); RDW Coefficient Variation 12.8 % (11.7-14.2); RDW Standard Deviation 43.3 fL (35.1-46.3)
[2025-02-07 17:38] LABS: Source, Urine Foley catheter
--- NOTE | 2025-02-07 17:40 | NUR ---
PM NOTE PT REMAINED INTUBATED ON VENT T/O SHIFT. NEURO: UNRESPONSIVE TO STIMULI EXCEPT FOR SEVERE NAIL BED PRESSURE. PT DISPLAYS EXTERNAL ROTATION OF UPPER EXTREMITIES W/ NAIL BED PRESSURE. OCCASIONAL COUGH/WITHDRAW W/ ORAL CARE/SUCTIONING. EYES REMAIN W/O MOVEMENT AND FIXED/DILATED. CARDIAC/RESPIRATORY/GI//SKIN ASSESSMENT REMAINS SAME FROM AM NOTE. CLA REMAINS IN FACILITY, PRN ABGS HAVE BEEN DRAWN ALONG W/ SCHEDULED PER REQUEST.
[2025-02-07 17:42] LABS: Bilirubin, Urine Neg (Neg); Color, Urine Yellow (P-Yellow); Glucose Qualitative, Urine Neg (Neg); Ketones, Urine Neg (Neg); Leukocyte Esterase, Urine Neg (Neg); Protein, Urine 1+ (Neg); Specific Gravity, Urine 1.025 (1.003-1.022); Urobilinogen, Urine NORM (Normal)
[2025-02-07 17:49] LABS: Prothrombin Time Results 12.4 Sec (9.7-11.5)
[2025-02-07 17:52] LABS: Alanine Aminotransfer (ALT/SGP 68.0 U/L (12-78); Albumin, Blood 3.4 g/dL (3.4-5.0); Albumin/Globulin Ratio 0.8 (0.8-1.8); Anion Gap 6.0 mmol/L (3-11); Aspartate Aminotrans (AST/SGOT 41.0 U/L (12-37); Bilirubin, Direct 0.1 mg/dL (0.0-0.3); Bilirubin, Indirect 0.4 mg/dL (0.1-0.7); Bilirubin, Total 0.5 mg/dL (0.1-1.0); Blood Urea Nitrogen 26.0 mg/dL (8-24); CO2, Blood 26.0 mmol/L (21-32); Calcium, Blood 9.5 mg/dL (8.5-10.1); Chloride, Blood 107.0 mmol/L (98-108); Creatinine, Blood 0.6 mg/dL (0.60-1.20); Globulin, Blood 4.0 g/dL (2.2-4.0); Glucose, Blood 121.0 mg/dL (70-99); Magnesium, Blood 1.9 mg/dL (1.6-2.4); Phosphorus, Blood 3.5 mg/dL (2.5-4.9); Potassium, Blood 3.8 mmol/L (3.5-5.5); Sodium, Blood 135.0 mmol/L (136-145); Total Protein, Blood 7.4 g/dL (6.4-8.2)
[2025-02-07 18:05] LABS: Red Blood Cells, Urine 0-2 /hpf (0-2); White Blood Cells, Urine 0-2 /hpf (0-5)
[2025-02-07] MEDS ORDERED: Cetylpyridinium Chloride 1 EA MISC MT SCH (20:00)
[2025-02-08 05:06] LABS: pH Blood Arterial 7.46 (7.35-7.45)
[2025-02-08 05:14] LABS: Source, Urine Foley catheter
[2025-02-08 05:19] LABS: BASOPHILS ABSOLUTE AUTO 0.03 K/mm3 (0.00-0.23); BASOPHILS PERCENT AUTO 0 % (0-2); EOSINOPHILS ABSOLUTE AUTO 0.31 K/mm3 (0.00-0.68); EOSINOPHILS PERCENT AUTO 3 % (0-6); Hematocrit 34.6 % (37.0-53.0); Hemoglobin 11.8 g/dL (13.5-17.5); IMMATURE GRAN ABSOLUTE AUTO 0.04 K/mm3 (0.00-0.10); IMMATURE GRAN PERCENT AUTO 0 % (0-1); LYMPHOCYTES ABSOLUTE AUTO 1.65 K/mm3 (0.84-5.20); LYMPHOCYTES PERCENT AUTO 13 % (21-46); MONOCYTES ABSOLUTE AUTO 1.34 K/mm3 (0.16-1.47); MONOCYTES PERCENT AUTO 11 % (4-13); Mean Corpuscular HGB Conc 34.1 g/dL (31.5-36.5); Mean Corpuscular Volume 91 fL (80-100); NEUTROPHILS ABSOLUTE AUTO 8.94 K/mm3 (1.96-9.15); NEUTROPHILS PERCENT AUTO 73 % (41-73); NRBC ABSOLUTE 0.00 K/mm3 (0.00-0.02); NRBC Auto 0.0 /100 WBC (0.0-0.2); Platelet Count 284 K/mm3 (150-400); RDW Coefficient Variation 12.7 % (11.7-14.2); RDW Standard Deviation 42.1 fL (35.1-46.3)
[2025-02-08 05:21] LABS: Bilirubin, Urine Neg (Neg); Color, Urine Yellow (P-Yellow); Glucose Qualitative, Urine Neg (Neg); Ketones, Urine Neg (Neg); Leukocyte Esterase, Urine Neg (Neg); Protein, Urine 1+ (Neg); Specific Gravity, Urine 1.020 (1.003-1.022); Urobilinogen, Urine NORM (Normal)
[2025-02-08 05:30] LABS: Red Blood Cells, Urine 0-2 /hpf (0-2); White Blood Cells, Urine Not Seen /hpf (0-5)
[2025-02-08 05:35] LABS: Prothrombin Time Results 12.5 Sec (9.7-11.5)
[2025-02-08 05:40] LABS: Alanine Aminotransfer (ALT/SGP 68.0 U/L (12-78); Albumin, Blood 3.3 g/dL (3.4-5.0); Albumin/Globulin Ratio 0.8 (0.8-1.8); Anion Gap 8.0 mmol/L (3-11); Aspartate Aminotrans (AST/SGOT 44.0 U/L (12-37); Bilirubin, Direct 0.1 mg/dL (0.0-0.3); Bilirubin, Indirect 0.3 mg/dL (0.1-0.7); Bilirubin, Total 0.4 mg/dL (0.1-1.0); Blood Urea Nitrogen 27.0 mg/dL (8-24); CO2, Blood 26.0 mmol/L (21-32); Calcium, Blood 9.0 mg/dL (8.5-10.1); Chloride, Blood 107.0 mmol/L (98-108); Creatinine, Blood 0.64 mg/dL (0.60-1.20); Globulin, Blood 4.2 g/dL (2.2-4.0); Glucose, Blood 113.0 mg/dL (70-99); Magnesium, Blood 2.0 mg/dL (1.6-2.4); Phosphorus, Blood 3.5 mg/dL (2.5-4.9); Potassium, Blood 4.0 mmol/L (3.5-5.5); Sodium, Blood 137.0 mmol/L (136-145); Total Protein, Blood 7.5 g/dL (6.4-8.2)
--- NOTE | 2025-02-08 06:26 | NUR ---
SHIFT SUMMARY NO CHANGE IN PT STATUS T/O SHIFT. CONTINUES ON VENT, JUNAID WELL, SXN REQUIRED EVERY 1-2 HRS FROM ORAL AND ETT. STILL NOT OPENING EYES, NO FOLLOWING COMMANDS, ONLY DECEREBRATE POSTURING BUE WITH DEEP NAIL BED PRESSURE. SOME MOVEMENT OF HEAD AT TIMES WITH REPOSITIONING AND SXN. VSS REMAINED STABLE T/O NIGHT. WILL UPDATE DAY RN WITH ALL OUTSTANDING ISSUES, CURRENT LABS AND VS.
--- NOTE | 2025-02-08 11:14 | NUR ---
AM NOTE PT INTUBATED ON VENT AT TIME OF BEDSIDE REPORT W/ NOC NURSE. NEURO: PT UNRESPONSIVE TO STIMULI, SLIGHT LEFT FOOT DOSIRFLEXION AND UPPER EXTREMITY EXTERNAL ROTATION W/ DEEP NAIL BED PRESSURE AND OCCASIONAL COUGH/MOVEMENT W/ ORAL CARE/INLINE SUCTIONING. PUPILS DILATED AND FIXED W/O MOVEMENT, CORNEAL REFELX PRESENT, AFEBRILE. CARDAIC: NSR IN THE 80'S, MAPS>65, CAP REFILL<3 SEC, NO EDEMA NOTED. RESPIRATORY: ACVC ON VENT 14/520/10/40, ETT 8.0 AND 25 AT THE TEETH. LUNGS CLEAR TO AUSCULATATION. MODERATE INLINE/ORAL SECRECRETIONS W/ SUCTIONING. GI: OG IN PLACE 62 AT TEETH, VHP TRICKLE FEED AT 10ML/HR, BOWEL SOUNDS HYPOACTIVE. : BUTLER CATHETER IN PLACE AND DRAINIGN CLEAR YELLOW URINE TO GRAVITY. SKIN INTACT AND W/O BREAKDOWN, SLIGHT RED RASH ON BLE. ACCESS: LUE TRIPLE LUMEN PICC, RH PIV GTTS: LR AT 50 CLA AT BEDSIDE TO PERFORM PRN ASSESSMENTS.
[2025-02-08] MEDS ORDERED: Heparin Sodium 10,000 Units/ML 1ML MDV IV PRN (11:35)
[2025-02-08 13:31] LABS: pH Blood Arterial 7.43 (7.35-7.45)
[2025-02-08 13:50] LABS: pH Blood Arterial 7.47 (7.35-7.45)
--- NOTE | 2025-02-08 14:19 | NUR ---
ROUNDED ON PT. NO FAMILY IN THE ROOM AT THIS TIME. PT INTUBATED, APPEARS COMFORTABLE. DISCUSSED CASE WITH BSRN
[2025-02-08 16:24] LABS: CORONAVIRUS COVID-19 AG Negative (NEGATIVE)
[2025-02-08 17:09] LABS: Source, Urine Foley catheter
[2025-02-08 17:14] LABS: Bilirubin, Urine Neg (Neg); Color, Urine Yellow (P-Yellow); Glucose Qualitative, Urine Neg (Neg); Ketones, Urine Neg (Neg); Leukocyte Esterase, Urine Neg (Neg); Protein, Urine 1+ (Neg); Specific Gravity, Urine 1.020 (1.003-1.022); Urobilinogen, Urine NORM (Normal)
[2025-02-08 17:14] LABS: pH Blood Arterial 7.45 (7.35-7.45)
--- NOTE | 2025-02-08 17:59 | NUR ---
PM NOTE PT REMAINED INTUBATED ON VENT T/O SHOFT, NO CHANGES TO ASSESSMENT. SEE AM NOTE FOR DETAILS. PT'S MOTHER MANPREET UPATED VIA TELEPHONE W/ BEDSIDE RN AND CLA COORDINATOR. ACCESS: E TRIPLE LUMEN PICC, PIV GTTS: LR AT 50
[2025-02-08 18:10] LABS: BASOPHILS ABSOLUTE AUTO 0.04 K/mm3 (0.00-0.23); BASOPHILS PERCENT AUTO 0 % (0-2); EOSINOPHILS ABSOLUTE AUTO 0.26 K/mm3 (0.00-0.68); EOSINOPHILS PERCENT AUTO 2 % (0-6); Hematocrit 34.9 % (37.0-53.0); Hemoglobin 11.7 g/dL (13.5-17.5); IMMATURE GRAN ABSOLUTE AUTO 0.05 K/mm3 (0.00-0.10); IMMATURE GRAN PERCENT AUTO 0 % (0-1); LYMPHOCYTES ABSOLUTE AUTO 1.28 K/mm3 (0.84-5.20); LYMPHOCYTES PERCENT AUTO 10 % (21-46); MONOCYTES ABSOLUTE AUTO 1.07 K/mm3 (0.16-1.47); MONOCYTES PERCENT AUTO 9 % (4-13); Mean Corpuscular HGB Conc 33.5 g/dL (31.5-36.5); Mean Corpuscular Volume 94 fL (80-100); NEUTROPHILS ABSOLUTE AUTO 9.75 K/mm3 (1.96-9.15); NEUTROPHILS PERCENT AUTO 78 % (41-73); NRBC ABSOLUTE 0.00 K/mm3 (0.00-0.02); NRBC Auto 0.0 /100 WBC (0.0-0.2); Platelet Count 280 K/mm3 (150-400); RDW Coefficient Variation 12.6 % (11.7-14.2); RDW Standard Deviation 43.1 fL (35.1-46.3)
[2025-02-08 18:29] LABS: Prothrombin Time Results 12.5 Sec (9.7-11.5)
[2025-02-08 18:46] LABS: Alanine Aminotransfer (ALT/SGP 68.0 U/L (12-78); Albumin, Blood 3.1 g/dL (3.4-5.0); Albumin/Globulin Ratio 0.8 (0.8-1.8); Anion Gap 8.0 mmol/L (3-11); Aspartate Aminotrans (AST/SGOT 38.0 U/L (12-37); Bilirubin, Direct 0.1 mg/dL (0.0-0.3); Bilirubin, Indirect 0.3 mg/dL (0.1-0.7); Bilirubin, Total 0.4 mg/dL (0.1-1.0); Blood Urea Nitrogen 29.0 mg/dL (8-24); CO2, Blood 26.0 mmol/L (21-32); Calcium, Blood 9.3 mg/dL (8.5-10.1); Chloride, Blood 107.0 mmol/L (98-108); Creatinine, Blood 0.62 mg/dL (0.60-1.20); Globulin, Blood 3.9 g/dL (2.2-4.0); Glucose, Blood 131.0 mg/dL (70-99); Magnesium, Blood 1.8 mg/dL (1.6-2.4); Phosphorus, Blood 4.0 mg/dL (2.5-4.9); Potassium, Blood 3.7 mmol/L (3.5-5.5); Sodium, Blood 137.0 mmol/L (136-145); Total Protein, Blood 7.0 g/dL (6.4-8.2)
[2025-02-08 18:48] LABS: Vancomycin, Trough 17.5 ug/mL (5.0-10.0)
[2025-02-08] MEDS ORDERED: Magnesium Sulf 2 GM/Water 50ML 50 ML IV ONE (19:50)
--- NOTE | 2025-02-08 23:46 | NUR ---
ASSUMED CARE OF PT AT 1900. PT RESTING ON BED, MULTIPLE FRIENDS AND FAMILY AT BEDSIDE. CLA REGISTERED NURSE TEACHER PRESENT- LABS DRAWN REQUESTED. LR INFUSING AT 50ML/HR. BILAT PUPILS UNRESPONSIVE TO LIGHT. PT OCCASIONALLY MOVING HEAD AND COUGHING W/ ORAL CARE AND SUCTION. CORNEAL REFLEX PRESENT. SLIGHT WITHDRAWL OF LEFT FOOT AND RIGHT HAND W/ DEEP NAIL BED PRESSURE. PT LUNGS CLEAR, VENT SETTINGS AC/VC: 14/520/10/40%. CLEAR SECRETIONS VIA ETT AND ORAL SUCTIONING. NSR ON STUDENT LIFE VICE PRESIDENT, RATE OF 60-80S. BP STABLE. PT AFEBRILE. DRAINING CLEAR YELLOW URINE VIA TEMP PROBE BUTLER. PLAN OF CARE ONGOING.
[2025-02-09 05:14] LABS: BASOPHILS ABSOLUTE AUTO 0.03 K/mm3 (0.00-0.23); BASOPHILS PERCENT AUTO 0 % (0-2); EOSINOPHILS ABSOLUTE AUTO 0.21 K/mm3 (0.00-0.68); EOSINOPHILS PERCENT AUTO 2 % (0-6); Hematocrit 34.4 % (37.0-53.0); Hemoglobin 11.7 g/dL (13.5-17.5); IMMATURE GRAN ABSOLUTE AUTO 0.07 K/mm3 (0.00-0.10); IMMATURE GRAN PERCENT AUTO 1 % (0-1); LYMPHOCYTES ABSOLUTE AUTO 1.45 K/mm3 (0.84-5.20); LYMPHOCYTES PERCENT AUTO 12 % (21-46); MONOCYTES ABSOLUTE AUTO 1.11 K/mm3 (0.16-1.47); MONOCYTES PERCENT AUTO 9 % (4-13); Mean Corpuscular HGB Conc 34.0 g/dL (31.5-36.5); Mean Corpuscular Volume 90 fL (80-100); NEUTROPHILS ABSOLUTE AUTO 9.55 K/mm3 (1.96-9.15); NEUTROPHILS PERCENT AUTO 77 % (41-73); NRBC ABSOLUTE 0.00 K/mm3 (0.00-0.02); NRBC Auto 0.0 /100 WBC (0.0-0.2); Platelet Count 286 K/mm3 (150-400); RDW Coefficient Variation 12.7 % (11.7-14.2); RDW Standard Deviation 41.9 fL (35.1-46.3)
[2025-02-09 05:17] LABS: pH Blood Arterial 7.44 (7.35-7.45)
[2025-02-09 05:29] LABS: Prothrombin Time Results 12.5 Sec (9.7-11.5)
[2025-02-09 05:42] LABS: Alanine Aminotransfer (ALT/SGP 77.0 U/L (12-78); Albumin, Blood 3.3 g/dL (3.4-5.0); Albumin/Globulin Ratio 0.8 (0.8-1.8); Anion Gap 7.0 mmol/L (3-11); Aspartate Aminotrans (AST/SGOT 42.0 U/L (12-37); Bilirubin, Direct 0.1 mg/dL (0.0-0.3); Bilirubin, Indirect 0.2 mg/dL (0.1-0.7); Bilirubin, Total 0.3 mg/dL (0.1-1.0); Blood Urea Nitrogen 26.0 mg/dL (8-24); CO2, Blood 26.0 mmol/L (21-32); Calcium, Blood 9.2 mg/dL (8.5-10.1); Chloride, Blood 109.0 mmol/L (98-108); Creatinine, Blood 0.62 mg/dL (0.60-1.20); Globulin, Blood 4.1 g/dL (2.2-4.0); Glucose, Blood 121.0 mg/dL (70-99); Magnesium, Blood 2.3 mg/dL (1.6-2.4); Phosphorus, Blood 4.0 mg/dL (2.5-4.9); Potassium, Blood 4.3 mmol/L (3.5-5.5); Sodium, Blood 138.0 mmol/L (136-145); Total Protein, Blood 7.4 g/dL (6.4-8.2)
[2025-02-09 06:21] LABS: Source, Urine Foley catheter
[2025-02-09 06:25] LABS: Bilirubin, Urine Neg (Neg); Color, Urine Yellow (P-Yellow); Glucose Qualitative, Urine Neg (Neg); Ketones, Urine Neg (Neg); Leukocyte Esterase, Urine Neg (Neg); Protein, Urine 2+ (Neg); Specific Gravity, Urine 1.020 (1.003-1.022); Urobilinogen, Urine NORM (Normal)
[2025-02-09 06:35] LABS: Red Blood Cells, Urine 0-2 /hpf (0-2); White Blood Cells, Urine 0-2 /hpf (0-5)
--- NOTE | 2025-02-09 07:00 | NUR ---
CARE ASSUMPTION DURING BEDSIDE SHIFT REPORT Darryl RASHEED RN THE PT IS LYING IN BED TURNEEDD TO HIS LEFT SIDE INTUBATED ON THE VENTILATOR. PT ON 40% FIO2 W SPO2 >94%. MONITOR SHOWING SB 59. ARTERIAL LINE IN PLACE W GOOD WAVEFORM. PT HAS TEMP BUTLER SHOWING CORE TEMP OF 98.4. DURING ASSESSMENT SUSANA KITCHEN CLA INSTRUCTING TO TURN TUBE FEEDS OFF AND CONNECT OG TUBE TO LIS. TF DC'D AT 0725. THIS RN CONFIRMED W SUSANA THAT AM LOVENOX WAS TO BE GIVEN AND THIS RN INSTRUCTED TO GIVE THE AM LOVENOX.
[2025-02-09 09:42] LABS: BASOPHILS ABSOLUTE AUTO 0.04 K/mm3 (0.00-0.23); BASOPHILS PERCENT AUTO 0 % (0-2); EOSINOPHILS ABSOLUTE AUTO 0.18 K/mm3 (0.00-0.68); EOSINOPHILS PERCENT AUTO 1 % (0-6); Hematocrit 35.9 % (37.0-53.0); Hemoglobin 12.2 g/dL (13.5-17.5); IMMATURE GRAN ABSOLUTE AUTO 0.03 K/mm3 (0.00-0.10); IMMATURE GRAN PERCENT AUTO 0 % (0-1); LYMPHOCYTES ABSOLUTE AUTO 1.31 K/mm3 (0.84-5.20); LYMPHOCYTES PERCENT AUTO 10 % (21-46); MONOCYTES ABSOLUTE AUTO 1.13 K/mm3 (0.16-1.47); MONOCYTES PERCENT AUTO 8 % (4-13); Mean Corpuscular HGB Conc 34.0 g/dL (31.5-36.5); Mean Corpuscular Volume 90 fL (80-100); NEUTROPHILS ABSOLUTE AUTO 10.74 K/mm3 (1.96-9.15); NEUTROPHILS PERCENT AUTO 80 % (41-73); NRBC ABSOLUTE 0.00 K/mm3 (0.00-0.02); NRBC Auto 0.0 /100 WBC (0.0-0.2); Platelet Count 325 K/mm3 (150-400); RDW Coefficient Variation 12.6 % (11.7-14.2); RDW Standard Deviation 41.7 fL (35.1-46.3)
[2025-02-09] MEDS ORDERED: Morphine Sulfate 10 MG/ML 1MLSYR IV PRN (11:15)
[2025-02-09] MEDS ORDERED: Morphine Sulfate 20 MG/1ML 1 ML Oral Syringe SL PRN (11:15)
[2025-02-09] MEDS ORDERED: Atropine Sulfate 1% Opth Soln 2ML BTL SL PRN (11:15)
[2025-02-09] MEDS ORDERED: Haloperidol Lactate Inj. 5 MG/ML Injection IV PRN (11:15)
[2025-02-09] MEDS ORDERED: Diazepam 5 MG / ML 2ML SYR IV PRN (11:35)
--- NOTE | 2025-02-09 12:05 | NUR ---
SUPPORTIVE VISIT FOR FAMILY. PT'S MOM REQUESTED TO BATH HER SON. NURSING STAFF IN ROOM TO ASSIST MOTHER. COMFORT CARE ORDERS PLACED. PLAN IS FOR PT TO GO TO THE OR THIS AFTERNOON FOR ORGAN DONATION.
--- NOTE | 2025-02-09 12:52 | NUR ---
UPDATE PT'S BP TRENDING DOWN. JO ANN MEAZ AND DR. UGALDE NOTIFIED. ORDERS TO BOLUS 500ML NS IF SBP <90. CURRENT MAP >65.
--- NOTE | 2025-02-09 14:48 | NUR ---
Spiritual Care visit conducted. Several visits throughout the day took place before, during and after organ donation. Family moved in and out of emotions as they attempted to process the events of the day. I prayed with the family early in the day, and then a couple of times just after extubation and at TOD at 1402. I organized the honor walk checking with security, RN Cafeteria Helper, donation team and ICU staff. I invited the Hospital employees via email and overhead page to the honor walk and spoke a blessing to for the donation at the OR doors just prior to going into surgery. I provided grief support and companionship to the family after the TOD as they waited for news of successful extraction of the organs. I will continue to remain available to the family if they lenger at the hospital. Spiritual care brought comfort, honor and compassion to the family and friends during a challenging day.
[2025-02-09] MEDS ORDERED: Rocuronium Bromide 10 MG/ML 5ML Injection IV ONE (15:40)
[2025-02-09] MEDS ORDERED: Heparin Sodium 10,000 Units/ML 1ML MDV ONE (16:24)
--- NOTE | 2025-02-09 16:52 | NUR ---
02/09/25 [id number] Fritz [id number] IU OF HEPARIN WAS GIVEN ON THE FIELD PER CIRCULATING RN IN STER[place] FASHON TO THE SCRUB. HEPARIN WAS MIXED WITH 500ML OF INJECTABLE NORMAL SALINE AND USED TO FLUSH VESSELS IN THE LIVER BY THE TRANSPLANT TEAM.
== END 2025-02-09 19:29 | DRG 917 ==
LOC: ER 04:35 → ICUE 07:59
PROVIDERS: Internal Medicine; Internal Medicine Critical Care Medicine; Pharmacist; Student in an Organized Health Care Education/Training Program; ADMIT Student in an Organized Health Care Education/Training Program
PROC: 0BH17EZ Insertion of Endotracheal Airway into Trachea, Via Natural or Artificial Opening (ICD-10-PCS; 2025-01-30)
PROC: 5A12012 Performance of Cardiac Output, Single, Manual (ICD-10-PCS; 2025-01-30)
PROC: 3E033XZ Introduction of Vasopressor into Peripheral Vein, Percutaneous Approach (ICD-10-PCS; 2025-01-30)
PROC: 3E03329 Introduction of Other Anti-infective into Peripheral Vein, Percutaneous Approach (ICD-10-PCS; 2025-01-31)
PROC: 0DH67UZ Insertion of Feeding Device into Stomach, Via Natural or Artificial Opening (ICD-10-PCS; principal; 2025-02-01)
PROC: 0T9B70Z Drainage of Bladder with Drainage Device, Via Natural or Artificial Opening (ICD-10-PCS; 2025-02-01)
PROC: 03HY32Z Insertion of Monitoring Device into Upper Artery, Percutaneous Approach (ICD-10-PCS; 2025-02-02)
PROC: 4A133R1 Monitoring of Arterial Saturation, Peripheral, Percutaneous Approach (ICD-10-PCS; 2025-02-02)
PROC: 0B9M8ZZ Drainage of Bilateral Lungs, Via Natural or Artificial Opening Endoscopic (ICD-10-PCS; 2025-02-03)
PROC: 0B9H8ZX Drainage of Lung Lingula, Via Natural or Artificial Opening Endoscopic, Diagnostic (ICD-10-PCS; 2025-02-03)
PROC: 5A1945Z Respiratory Ventilation, 24-96 Consecutive Hours (ICD-10-PCS; 2025-02-06)
PROC: 02HV33Z Insertion of Infusion Device into Superior Vena Cava, Percutaneous Approach (ICD-10-PCS; 2025-02-06)
PROC: B34HZZZ Ultrasonography of Right Upper Extremity Arteries (ICD-10-PCS; 2025-02-06)
PROC: B2111ZZ Fluoroscopy of Multiple Coronary Arteries using Low Osmolar Contrast (ICD-10-PCS; 2025-02-06)
PROC: 02HP32Z Insertion of Monitoring Device into Pulmonary Trunk, Percutaneous Approach (ICD-10-PCS; 2025-02-06)
PROC: 4A133B3 Monitoring of Arterial Pressure, Pulmonary, Percutaneous Approach (ICD-10-PCS; 2025-02-06)
PROC: 4A1239Z Monitoring of Cardiac Output, Percutaneous Approach (ICD-10-PCS; 2025-02-06)
DX: T43.651A Poisoning by methamphetamines accidental (unintentional), initial encounter (principal); G93.6 Cerebral edema; J18.9 Pneumonia, unspecified organism; J96.01 Acute respiratory failure with hypoxia; G93.1 Anoxic brain damage, not elsewhere classified; E87.1 Hypo-osmolality and hyponatremia; E87.20 Acidosis, unspecified; G40.89 Other seizures; F84.5 Asperger's syndrome; M96.A1 Fracture of sternum associated with chest compression and cardiopulmonary resuscitation; Z51.5 Encounter for palliative care; I46.8 Cardiac arrest due to other underlying condition; F32.A Depression, unspecified; E03.9 Hypothyroidism, unspecified; B96.89 Other specified bacterial agents as the cause of diseases classified elsewhere; F90.9 Attention-deficit hyperactivity disorder, unspecified type; F17.210 Nicotine dependence, cigarettes, uncomplicated; I10 Essential (primary) hypertension; D64.9 Anemia, unspecified; K76.89 Other specified diseases of liver; R73.9 Hyperglycemia, unspecified; F25.0 Schizoaffective disorder, bipolar type; E87.6 Hypokalemia; E83.39 Other disorders of phosphorus metabolism; I27.20 Pulmonary hypertension, unspecified; I25.10 Atherosclerotic heart disease of native coronary artery without angina pectoris; Z60.2 Problems related to living alone; R74.01 Elevation of levels of liver transaminase levels; Z88.8 Allergy status to other drugs, medicaments and biological substances; Z91.048 Other nonmedicinal substance allergy status; Z79.890 Hormone replacement therapy; Z79.899 Other long term (current) drug therapy; Z90.89 Acquired absence of other organs; Z98.890 Other specified postprocedural states
CPT/HCPCS: 31500; 36415; 36569; 36620; 51702; 70450; 71045; 71260; 72125; 74018; 74177; 76937; 80048; 80053; 80069; 80076; 80178; 80202; 81001; 81003; 82150; 82248; 82550; 82803; 82947; 83036; 83605; 83615; 83690; 83735; 84100; 84132; 84484; 85025; 85610; 85730; 86757; 86850; 86900; 86901; 86923; 87040; 87070; 87077; 87086; 87186; 87205; 87426-QW; 93005; 93010; 93306; 93460; 94002; 94003; 94640; 94664; 94667; 94668; 94760; 94762; 96374-59; 99285-25; A9270; C1751; C1769; C1894; G0480; J0696; J1265; J1642; J1644; J1650; J1938; J1953; J1956; J2250; J2270; J2470; J2704; J3010; J3360; J3373; J3475; J3480; J7030; J7040; J7050; J7060; J7120; P9016; P9047; Q9967

== ENCOUNTER 2025-02-02 14:55 | Inpatient (IN) | payer OTHER ==
[~2025-02-02 14:55] MED LIST changes: +DOC250 PO; +FLUT1DIS2 INH; +Iron Chews15 MG PO; +MAGNESIUM OXID500 MG PO; +VITAMIN D350 MC3 PO; +Vitamin D1000 UNI1 PO
== END 2025-02-09 14:02 | DRG 951 ==
LOC: PCU 14:55 → SURS 02-09 14:01 → PCU 02-09 14:01 → SURS 02-09 14:02
PROVIDERS: ADMIT Internal Medicine
DX: Z52.9 Donor of unspecified organ or tissue (principal)
CPT/HCPCS: 36569; 36620; 71045; 74018; 76937; 80048; 80053; 80076; 80202; 81001; 81003; 82150; 82248; 82550; 82803; 82947; 83036; 83615; 83690; 83735; 84100; 84132; 84484; 85025; 85610; 85730; 86757; 86850; 86900; 86901; 86923; 87040; 87070; 87077; 87086; 87186; 87205; 87426-QW; 93306; 93460; 94003; 94640; 94667; 94668; 94760; 94762; A9270; C1751; C1769; C1894; J0696; J1642; J1644; J1650; J1938; J1953; J2250; J2270; J2470; J3010; J3360; J3373; J3475; J3480; J7030; J7040; J7050; J7120; P9016; P9047; Q9967